=== PATIENT | male | born 1965 | race Caucasian/White ===

== ENCOUNTER 2017-05-29 17:36 | Emergency (ER) | payer MEDICARE, OTHER, SELFPAY ==
[2017-05-29 17:39] VITALS: BP 167/95; PULSE 81; RESP 16; TEMP 36.8; O2SAT 96; BMI 31.3
[2017-05-29] MEDS: Diphth,Pertuss(Acell),Tet Vac 0.5 ML Vial IM (18:32)
--- NOTE | 2017-05-29 19:18 | ED.DCSUM_ITS ---
- ER Visit Summary Date of Service: 05/29/17 Chief Complaint: Right index finger injury History of Present Illness: The patient is a 51 M who cut his right index finger with a composition roll maker and cutter less than an hour before presentation. He denies paresthesias weakness loss of function. He is uncertain of his last tetanus immunization. Denies paresthesias weakness loss of function. Physical Examination: Afebrile vitals are stable Heart regular rate and rhythm Lungs are clear 1 1/2 cm laceration over the dorsal aspect of the distal right index finger brisk capillary refill with normal sensation Test Results: Not indicated Emergency Department Course and Treatment: Tetanus immunization updated. Patient was anesthetized utilizing a digital block and the wound was cleansed with sterile saline. Laceration closed with 4 simple interrupted 50 nonabsorbable sutures. Patient instructed on local wound care. Treatment Plan: [] Disposition: Discharge Impression: Right index finger laceration This note was generated with OnHand dictation software. It may contain incorrect words, spelling, and punctuation that were not noted in review of the chart prior to signing ED Disposition - Plan for ED Patient: Chief Complaint: Laceration Referrals: Azael Ramos MD [Primary Care Provider] -
--- NOTE | 2017-05-29 19:18 | ED.DEP ---
ED Disposition - Plan for ED Patient: Chief Complaint: Laceration Instructions: ED Laceration Hand Referrals: Azael Ramos MD [Primary Care Provider] -
[2017-05-29 19:44] VITALS: RESP 18
== END 2017-05-29 19:45 | disposition home or self-care (01) ==
PROVIDERS: Emergency Provider Emergency Medicine; Family Provider Family Medicine; PCP Family Medicine
DX: S61.210A Laceration without foreign body of right index finger without damage to nail, initial encounter (principal); W29.8XXA Contact with other powered hand tools and household machinery, initial encounter; Y93.9 Activity, unspecified; Y92.9 Unspecified place or not applicable; Y99.9 Unspecified external cause status; Z23 Encounter for immunization; I12.0 Hypertensive chronic kidney disease with stage 5 chronic kidney disease or end stage renal disease; N18.6 End stage renal disease; Z99.2 Dependence on renal dialysis
CPT/HCPCS: 12001; 90715; 99283

== ENCOUNTER → 2017-07-07 08:32 | Outpatient (CLI) | payer MEDICARE, OTHER, SELFPAY ==
[2017-07-07 10:42] LABS: Anion Gap 11 (5-15); BUN 47 mg/dL (7-18); BUN/Creat Ratio 2.7 RATIO (10-20); Calcium,Total 8.3 mg/dL (8.5-10.1); Chloride 98 mmol/L (98-107); Cholesterol 122 mg/dL (200); EST Glomerular Filtration Rate 3 mL/min (>60); Est Glom Filt Rate - Afr Amer 4 mL/min (>60); Glucose 96 mg/dL (74-106); High Density Lipoprotein 49 mg/dL; Sodium Level 138 mmol/L (136-145); Triglycerides 86 mg/dL; Very Low Density Lipoprotein 17 mg/dL (5-40)
== END ==
PROVIDERS: Family Provider Family Medicine; PCP Family Medicine; Visit Provider Family Medicine
DX: I10 Essential (primary) hypertension (principal)
CPT/HCPCS: 36415; 80048; 80061

== ENCOUNTER 2017-11-03 23:29 | Emergency (ER) | payer MEDICARE, OTHER, SELFPAY ==
[2017-11-03 23:31] VITALS: BP 155/99; PULSE 71; RESP 18; TEMP 36.4; O2SAT 99; BMI 26.0
--- NOTE | 2017-11-04 | CT_ITS ---
STUDY: CT ABDOMEN AND PELVIS WITHOUT CONTRAST REASON FOR EXAM: Male, 52 years old. Left-sided back pain. RADIATION DOSAGE (If Supplied By Facility): CTDIvol = ( 6.79 ) mGy, DLP = ( 325.88 ) mGycm TECHNIQUE: Transaxial images were obtained from the dome of the diaphragm to the symphysis pubis without oral contrast, and without intravenous contrast. Sagittal and coronal images were reconstructed. Individualized dose optimization techniques were used for this CT. COMPARISON: 10/02/2013. FINDINGS: The visualized lung bases are unremarkable. The visualized portions of the heart are within normal limits. There again are low-density lesions in the anterior segment of the right lobe of the liver inferiorly unchanged since prior exam and likely representing cysts. Normal gallbladder and extrahepatic biliary system. Normal spleen. Normal pancreas. Normal bilateral adrenal glands. Both kidneys are small and atrophic. There is moderate right hydronephrosis and hydroureter. There are calcifications in the right lower quadrant probably representing surgical clips. Stones in the distal right ureter are less likely. There are multiple nonobstructing stones in the lower pole of the left kidney new since previous exam. There is a cyst in the right kidney. There is a transplant kidney in the right lower quadrant. There is no definite hydronephrosis however renal ultrasound might be of value. The stomach is markedly distended. There are nonspecific fluid-filled small bowel loops without evidence of small bowel obstruction. There is diverticulosis of the sigmoid colon but there is no evidence of acute diverticulitis. The appendix is visualized and appears normal. There is diffuse atherosclerotic calcification of the abdominal aorta, without a demonstrated aneurysm. Normal inferior vena cava. Normal retroperitoneum. There is thickening of the bladder wall. There are radiation seeds in the prostate. There is a small umbilical hernia containing fat. There are mild degenerative changes in the lower thoracic spine. CT/Abdomen/Pelvis without Cont IMPRESSION: Atrophic kidneys consistent with chronic renal medical disease with moderate right hydronephrosis and proximal right hydroureter new since previous exam. Small nonobstructing stones in the lower pole of the left kidney. Transplant kidney in the right lower quadrant better evaluated by ultrasound. Nonspecific fluid-filled small bowel loops without evidence of small bowel obstruction. Mild ileus or enteritis are possible. Thickening of the bladder wall probably due to underdistention. Otherwise cystitis cannot be excluded. Electronically Signed: Martin Barrera MD at 1:28 EDT Tel , Service support ,
[2017-11-04] MEDS: Morphine 4 MG/ML Syringe IV (00:25)
[2017-11-04] MEDS: Ondansetron 4 MG/2 ML Vial IV (00:26)
[2017-11-04 00:28] LABS: Differential Indicated MANUAL DIFF; Hematocrit 31.7 % (40-54); Hemoglobin 10.2 g/dl (13.0-16.5); Mean Corp Hgb Conc 32.2 g/gl (32-36); Mean Corpuscular Hgb 29.2 pg (27.0-32.0); Mean Corpuscular Volume 90.8 fL (80-94); Mean Platelet Vol. 8.8 fl (6.2-12.0); POSITIVE COUNT YES; POSITIVE DIFFERENTIAL YES; POSITIVE MORPHOLOGY YES; Platelet Count 264 K/mm3 (150-450); RBC Distribution Width CV 14.6 % (11.6-14.6); Red Blood Count 3.49 M/mm3 (4.6-6.2); White Blood Count 4.4 K/mm3 (4.4-11.0)
[2017-11-04 00:40] LABS: Mucous, Urine 0 SEEN /hpf (<or=2+)
[2017-11-04 00:41] LABS: Anion Gap 10 (5-15); BUN 15 mg/dL (7-18); BUN/Creat Ratio 9.4 RATIO (10-20); Calcium,Total 8.7 mg/dL (8.5-10.1); Chloride 108 mmol/L (98-107); EST Glomerular Filtration Rate 48 mL/min (>60); Est Glom Filt Rate - Afr Amer 59 mL/min (>60); Estimated Creatinine Clearance 48.74 ml/min; Glucose 211 mg/dL (74-106); Potassium 3.2 mmol/L (3.5-5.1); Sodium Level 140 mmol/L (136-145)
[2017-11-04 00:41] LABS: Color, Urine Yellow (Yellow); Glucose, Dipstick 250 mg/dl (Normal); Ketone-Dipstick Negative (Negative); Leukocyte Esterase-Dipstick 100 /ul (Negative); Nitrite-Dipstick Negative (Negative); Occult Blood-Urine 250 /ul (Negative); Protein-Dipstick 30 mg/dl (Negative); Urine Bilirubin Dipstick Negative (Negative); Urine Clarity Clear (Clear); Urine Urobilinogen Normal (Normal)
[2017-11-04 00:45] LABS: Lymphocyte 3 % (19-41); Metamyelocyte 1 % (0-1); Monocyte 6 % (0-10); Neutrophil-Band 7 % (0-5); Neutrophil-Segmented 83 % (47-70); Platelet Estimate ADEQUATE (ADEQ); Red Cell Morphology NORM C+C NORMAL (NORM C&C); Total Cells Counted 100 (MANUAL DIFF); Vacuolated Cells 1+
[2017-11-04 00:46] LABS: Absolute Lymphocyte Count 0.13 X10^3/ul (0.83-4.51); Lymphocyte # 0.13 X10^3/ul (4.0); Neutrophil # 3.96 X10^3/uL (2.7-7.7)
[2017-11-04 00:49] LABS: Red Blood Cells-Urine 0-5 SEEN /hpf (0-5); White Blood Cells 0-5 SEEN /hpf (0-5)
[2017-11-04 00:50] LABS: Bacteria 1+ /hpf (None Seen); Squamous Epithelial Cells - UA 0 SEEN /hpf (0-5)
--- NOTE | 2017-11-04 02:11 | ED.DCSUM_ITS ---
- ER Visit Summary Date of Service: 11/04/17 Chief Complaint: Back pain History of Present Illness: The patient is a 52 M who presents with left lower back pain. This is sharp and aching. He currently rates it a 6 out of 10. It is worse with movement. He also complains of some left groin pain. He has a kidney transplant patient. He complains of some dysuria but has frequently recently been straight cathing. He denies fevers or vomiting but does complain of some mild nausea which he attributes to pain. Physical Examination: Afebrile vitals are unremarkable Moist mucous members Heart regular rate and rhythm Lungs are clear Abdomen soft nontender nondistended He has mild left groin tenderness Left CVA tenderness Alert and oriented Test Results: Labs notable for 7% bands although total WBC is normal. Creatinine is 1.60. Urine shows 100 leukocyte esterase and 1+ bacteria but no nitrites and 0-[address] of the abdomen and pelvis was obtained which shows atrophic kidneys and moderate right hydroureter and hydronephrosis nonspecific fluid-filled small bowel loops and possible bladder wall thickening although this may be related to incomplete distention. Emergency Department Course and Treatment: Patient was given morphine and Zofran here for symptoms with improvement. Given his bandemia bacteriuria and bladder wall thickening I suspect this is early UTI. I did speak to the covering transplant surgeon up at [facility]. He recommended just sending a urine culture and awaiting these results and they will contact him for close follow-up. The patient is already on prophylactic Bactrim. Patient understands return for new or worsening symptoms. He was discharged home. Treatment Plan: [] Disposition: Discharge Impression: UTI Flank pain This note was generated with [employer] dictation software. It may contain incorrect words, spelling, and punctuation that were not noted in review of the chart prior to signing ED Disposition - Plan for ED Patient: Chief Complaint: Back Referrals: Azael Ramos MD [Primary Care Provider] -
--- NOTE | 2017-11-04 02:13 | ED.DEP ---
ED Disposition - Plan for ED Patient: Chief Complaint: Back Instructions: ED Flank Pain Uncertain Cause, ED UTI Cystitis Male Referrals: Azael Ramos MD [Primary Care Provider] -
[2017-11-04 02:19] VITALS: BP 138/88; PULSE 75; RESP 18; O2SAT 98
[2017-11-04 10:48] LABS: Pathologist Review Reviewed
== END 2017-11-04 02:20 | disposition home or self-care (01) ==
LOC: ED 11-04 00:01
PROVIDERS: Emergency Provider Emergency Medicine; Family Provider Family Medicine; PCP Family Medicine
DX: N39.0 Urinary tract infection, site not specified (principal); N13.30 Unspecified hydronephrosis; N26.1 Atrophy of kidney (terminal); I10 Essential (primary) hypertension; Z79.899 Other long term (current) drug therapy; Z79.52 Long term (current) use of systemic steroids; Z94.0 Kidney transplant status; Z85.46 Personal history of malignant neoplasm of prostate
CPT/HCPCS: 74176; 80048; 81001; 85025; 87077; 87086; 87088; 87186; 96374; 96375; 99283; A4216

== ENCOUNTER → 2018-07-05 08:48 | Outpatient (CLI) | payer MEDICARE, OTHER, SELFPAY ==
[2018-07-05 08:48] VITALS: BMI 31.3
[2018-07-05 11:01] LABS: ALB/GLOB Ratio 1.5 RATIO (0.9-2.4); AST(SGOT) 12 U/L (15-37); Alanine Aminotransfer ALT/SGPT 21 U/L (16-61); Albumin, Serum 3.9 g/dL (3.2-5.0); Alkaline Phosphatase 168 U/L (45-117); Anion Gap 9 (5-15); BUN 13 mg/dL (7-18); Calcium,Total 8.6 mg/dL (8.5-10.1); Chloride 106 mmol/L (98-107); Cholesterol 160 mg/dL (200); Creatinine, Serum 1.45 mg/dL (0.70-1.30); EST Glomerular Filtration Rate 54 mL/min (>60); Est Glom Filt Rate - Afr Amer 66 mL/min (>60); Globulin 2.6 g/dL (2.2-4.2); Glucose 116 mg/dL (74-106); High Density Lipoprotein 76 mg/dL; Potassium 3.7 mmol/L (3.5-5.1); Protein, Total 6.5 g/dL (6.4-8.2); Sodium Level 139 mmol/L (136-145); Triglycerides 77 mg/dL; Very Low Density Lipoprotein 15 mg/dL (5-40)
== END ==
PROVIDERS: Family Provider Family Medicine; PCP Family Medicine; Referring Provider Family Medicine; Visit Provider Family Medicine
DX: E78.5 Hyperlipidemia, unspecified (principal)
CPT/HCPCS: 36415; 80053; 80061

== ENCOUNTER → 2019-07-02 08:58 | Outpatient (CLI) | payer MEDICARE, OTHER, SELFPAY ==
[2018-07-05 08:48] VITALS: BMI 31.3
[2019-07-02 10:30] LABS: Cholesterol 145 mg/dL (200); High Density Lipoprotein 62 mg/dL; Triglycerides 95 mg/dL; Very Low Density Lipoprotein 19 mg/dL (5-40)
== END ==
PROVIDERS: PCP Family Medicine; Referring Provider Family Medicine; Visit Provider Family Medicine
DX: I10 Essential (primary) hypertension (principal)
CPT/HCPCS: 36415; 80061

== ENCOUNTER → 2019-10-18 | Outpatient (CLI) | payer MEDICARE, OTHER, SELFPAY ==
[2018-07-05 08:48] VITALS: BMI 31.3
[2019-10-18 11:50] LABS: Bacteria 0 SEEN /hpf (None Seen); Mucous, Urine 0 SEEN /hpf (<or=2+); Red Blood Cells-Urine 0 SEEN /hpf (0-5); Squamous Epithelial Cells - UA 0 SEEN /hpf (0-5); White Blood Cells 0 SEEN /hpf (0-5)
[2019-10-18 12:12] LABS: Color, Urine Yellow (Yellow); Glucose, Dipstick Normal (Normal); Ketone-Dipstick Negative (Negative); Leukocyte Esterase-Dipstick Negative /ul (Negative); Nitrite-Dipstick Negative (Negative); Occult Blood-Urine 25 /ul (Negative); Protein-Dipstick 15 mg/dl (Negative); Specific Gravity, Urine 1.015 (1.002-1.030); Urine Bilirubin Dipstick Negative (Negative); Urine Clarity Sl. Cloudy (Clear); Urine Urobilinogen Normal (Normal); Urine pH 6.5 (5.0 - 8.0)
[2019-10-18 12:51] LABS: Protein, Urine (Random) 27.6 mg/dL (<11.9); Protein:Creat Ratio 224 mg/g CRE (0-200)
== END | disposition home or self-care (01) ==
LOC: LABSPEC 11:49
PROVIDERS: PCP Family Medicine; Visit Provider Internal Medicine Nephrology
DX: Q87.81 Alport syndrome (principal)
CPT/HCPCS: 81001; 82570; 84156

== ENCOUNTER → 2019-12-11 | Outpatient (CLI) | payer MEDICARE, OTHER, SELFPAY ==
[2018-07-05 08:48] VITALS: BMI 31.3
[2019-12-10 17:33] LABS: Bacteria 0 SEEN /hpf (None Seen); Mucous, Urine 0 SEEN /hpf (<or=2+); Squamous Epithelial Cells - UA 0 SEEN /hpf (0-5); White Blood Cells 0 SEEN /hpf (0-5)
[2019-12-10 17:55] LABS: Color, Urine Yellow (Yellow); Glucose, Dipstick Normal (Normal); Ketone-Dipstick Negative (Negative); Leukocyte Esterase-Dipstick Negative /ul (Negative); Nitrite-Dipstick Negative (Negative); Occult Blood-Urine 10 /ul (Negative); Protein-Dipstick Negative (Negative); Specific Gravity, Urine 1.015 (1.002-1.030); Urine Bilirubin Dipstick Negative (Negative); Urine Clarity Clear (Clear); Urine Urobilinogen Normal (Normal)
[2019-12-10 18:04] LABS: Calcium Oxalate Crystals Ur 1+ /hpf (<or=2+); Red Blood Cells-Urine 0-5 SEEN /hpf (0-5)
== END | disposition home or self-care (01) ==
LOC: LABSPEC 11:25
PROVIDERS: PCP Family Medicine; Visit Provider Nurse Practitioner Adult Health
DX: R31.29 Other microscopic hematuria (principal)
CPT/HCPCS: 81001

== ENCOUNTER → 2020-05-28 | Outpatient (CLI) | payer MEDICARE, OTHER, SELFPAY ==
[2018-07-05 08:48] VITALS: BMI 31.3
== END | disposition home or self-care (01) ==
LOC: LABSPEC 16:20
PROVIDERS: PCP Family Medicine; Referring Provider Family Medicine; Visit Provider Family Medicine
DX: U07.1 COVID-19 (principal)
CPT/HCPCS: 87635; U0003

== ENCOUNTER → 2020-06-13 10:00 | Outpatient (CLI) | payer MEDICARE, OTHER, SELFPAY ==
[2018-07-05 08:48] VITALS: BMI 31.3
[2020-06-13 12:41] LABS: Absolute Lymphocyte Count 0.41 X10^3/uL (0.83-4.51); Absolute Neutrophil Count 12.3 X10^3/uL (2.0-7.7); Basophil# 0.02 X10^3/uL; Basophil% 0.1 % (0-1); Hematocrit 44.1 % (40-54); Hemoglobin 13.9 g/dL (13.0-16.5); Lymphocyte # 0.41 X10^3/ul (4.0); Mean Corp Hgb Conc 31.5 g/dL (32-36); Mean Corpuscular Hgb 26.9 pg (27.0-32.0); Mean Corpuscular Volume 85.3 fL (80-94); Mean Platelet Vol. 10.9 fl (6.2-12.0); Monocyte# 1.02 X10^3/uL; Monocyte% 7.4 % (0-10); NRBC Flagged by Analyzer 0 % (0-5); Neutrophil # 12.26 X10^3/uL (2.7-7.7); Neutrophil % 88.6 % (47-70); POSITIVE DIFFERENTIAL YES; Platelet Count 250 K/mm3 (150-450); RBC Distribution Width CV 13.8 % (11.6-14.6); RBC Distribution Width SD 42.2 fl (35.1-43.9); Red Blood Count 5.17 M/mm3 (4.6-6.2); White Blood Count 13.8 K/mm3 (4.4-11.0)
[2020-06-13 12:44] LABS: Differential Indicated SCAN CRITERIA MET
[2020-06-13 13:00] LABS: Differential Comment SCANNED
[2020-06-13 13:42] LABS: Anion Gap 22 (5-15); BUN 29 mg/dL (7-18); BUN/Creat Ratio 12.7 RATIO (10-20); Calcium,Total 9.1 mg/dL (8.5-10.1); Chloride 92 mmol/L (98-107); Creatinine, Serum 2.29 mg/dL (0.70-1.30); EST Glomerular Filtration Rate 32 mL/min (>60); Est Glom Filt Rate - Afr Amer 38 mL/min (>60); Glucose 619 mg/dL (74-106); Potassium 4.8 mmol/L (3.5-5.1); Sodium Level 129 mmol/L (136-145)
== END ==
PROVIDERS: PCP Family Medicine; Referring Provider Family Medicine; Visit Provider Family Medicine
DX: Z94.0 Kidney transplant status (principal)
CPT/HCPCS: 36415; 80048; 85025

== ENCOUNTER 2020-06-13 14:38 | Inpatient (IN) | payer MEDICARE, OTHER, SELFPAY ==
[2018-07-05 08:48] VITALS: BMI 31.3
[2020-06-13] VITALS (17 sets, daily range): BP systolic 83–161; BP diastolic 61–96; PULSE 73–100; RESP 14–22; TEMP 36.4–36.6; O2SAT 93–98; BMI 26.1; BMI 26.9
--- NOTE | 2020-06-13 15:07 | CT_ITS ---
STUDY: CT BRAIN WITHOUT CONTRAST REASON FOR EXAM: Male, 54 years old. Confusion. Weakness. Headache. RADIATION DOSAGE (If Supplied By Facility): CTDIvol = ( 44.99 ) mGy, DLP = ( 762.36 ) mGycm TECHNIQUE: Transaxial CT imaging of the brain was performed without administration of intravenous contrast material. Individualized dose optimization techniques were used for this CT. COMPARISON: No relevant priors. FINDINGS: Normal soft tissue structures. Normal calvarium. Normal size ventricles and extra-axial spaces for the patient''s age. Normal white matter tracts of the cerebral hemispheres. There is a small focal calcification adjacent to the left head of the caudate nucleus. Otherwise normal basal ganglia and thalami. Normal brainstem. Normal cerebellum. There is no intracranial hemorrhage. There are no findings of an acute ischemic infarction. Normal visualized paranasal sinuses. CT/Brain/Head without Contrast IMPRESSION: No evidence of acute intracranial or calvarial abnormality. If there is continuing concern for acute stroke, MRI is recommended. Electronically Signed: Jose Keller DO at 16:11 EST Tel [phone], Service support ,
--- NOTE | 2020-06-13 15:08 | EKG12_ITS ---
Test Reason : GENERAL ILLNESS Blood Pressure : / mmHG Vent. Rate : 083 BPM Atrial Rate : 083 BPM P-R Int : 158 ms QRS Dur : 098 ms QT Int : 384 ms P-R-T Axes : 037 -44 036 degrees QTc Int : 451 ms Normal sinus rhythm Left axis deviation Abnormal ECG Confirmed by MAURIZIO KNOX, DESTINY ([id number]), marketing editor DAPHNEY SANDERS ([id number]) on 06/16/2020 10:57:51 AM Referred By: Confirmed By:DESTINY STEVEN MD
--- NOTE | 2020-06-13 15:12 | ED.VISSUMM ---
- ER Visit Summary Date of Service: 06/13/20 Chief Complaint: Confusion History of Present Illness: The patient is a 54 M presenting for confusion. Patient states this started yesterday afternoon. He states he was had a positive Covid test on 05/28/2020. He states he was starting to feel improved. Yesterday he started to have confusion and trouble finding words. He has a mild headache. He has had nausea, vomiting, urinary frequency. He saw his primary care physician today who ordered outpatient blood work. This showed his blood sugar was over 600. Patient has no history of diabetes. He has a history of kidney transplant in 2018. He denies fever. Denies vision changes. Denies numbness or weakness. Denies chest pain or shortness of breath. Physical Examination: Vitals are stable. Patient is afebrile. Alert no acute distress. HEENT exam dry mucous membranes Neck is supple. Lungs are clear and equal bilaterally. Heart is regular tachycardic Abdomen is soft nontender nondistended. Extremities are unremarkable. Skin is warm and dry. No focal neurologic deficit. NIH 0 Remainder of exam is unremarkable. Emergency Department Course and Treatment: EKG is sinus rhythm rate of 83 with no acute ischemic changes. CT head shows no acute process. Chest x-ray shows question minimal atelectatic changes in left hilar region. There is no acute cardiopulmonary change. CBC shows white count 12.5. Chemistries show sodium 125, CO2 16, anion gap 18, glucose 679, BUN 29, creatinine 2.15. Ketones are moderate. Lactic acid is normal. Patient was given IV fluids and started on insulin drip. Discussed with Dr. Payne. Covid PCR was sent. Patient will be admitted to the ICU. Disposition: Admission Impression: DKA, confusion, recent Covid This note was generated with [employer] Ice dictation software. It may contain incorrect words, spelling, and punctuation that were not noted in review of the chart prior to signing ED Disposition - Plan for ED Patient: Referrals: Azael Ramos MD [Primary Care Provider] -
[2020-06-13 15:41] LABS: Bedside Glucose > 500 mg/dL (70-110)
[2020-06-13 15:50] LABS: Blood Gas Specimen Type VEN; O2 Delivery Device Room Air; SITE R Brach; VBG BASE EXCESS -12 mmol/L (-1.0-3.5); VBG Bicarbonate 14 mmol/L (22-26); VBG PO2 40 mmHg (25-40); VBG SO2 72 % (50-70); VBG TCO2 15 mmol/L (23-33); VBG pCO2 27.6 mmHg (41-51); VBG pH 7.32 (7.32-7.42)
--- NOTE | 2020-06-13 16:00 | RAD_ITS ---
STUDY: X-RAY CHEST REASON FOR EXAM: Male, 54 years old. Hyperglycemia. Confusion. Weakness. Headache. TECHNIQUE: Single AP portable view of the chest. COMPARISON: 04/19/2013. FINDINGS: The lungs are well expanded. There is slight elevation of the left hemidiaphragm. Minimal linear scarring versus atelectatic changes in the region left hilum. There is no focal mass or infiltrate. There is no demonstrated pleural abnormality. Normal size heart. Normal mediastinum and leobardo. Normal visualized pulmonary arteries. Normal visualized aortic arch and descending thoracic aorta. The thoracic spine is obscured by the mediastinum. Normal visualized ribs, clavicles, and shoulders. There is no demonstrated abnormality of the visualized soft tissue structures of the upper abdomen. RAD/Chest 1 View (Portable) IMPRESSION: Question minimal atelectatic changes in left hilar region. There is no acute cardiopulmonary change. Electronically Signed: Jose Keller DO at 16:26 EST Tel [phone], Service support ,
[2020-06-13 16:02] LABS: Absolute Lymphocyte Count 0.33 X10^3/uL (0.83-4.51); Absolute Neutrophil Count 11.2 X10^3/uL (2.0-7.7); Basophil# 0.02 X10^3/uL; Basophil% 0.2 % (0-1); Hematocrit 41.5 % (40-54); Hemoglobin 13.6 g/dL (13.0-16.5); Lymphocyte # 0.33 X10^3/ul (4.0); Lymphocyte % 2.7 % (19-41); Mean Corp Hgb Conc 32.8 g/dL (32-36); Mean Corpuscular Hgb 27.4 pg (27.0-32.0); Mean Corpuscular Volume 83.7 fL (80-94); Mean Platelet Vol. 10.9 fl (6.2-12.0); Monocyte# 0.84 X10^3/uL; Monocyte% 6.7 % (0-10); NRBC Flagged by Analyzer 0 % (0-5); Neutrophil # 11.15 X10^3/uL (2.7-7.7); Neutrophil % 89.5 % (47-70); POSITIVE DIFFERENTIAL YES; Platelet Count 216 K/mm3 (150-450); RBC Distribution Width CV 13.8 % (11.6-14.6); RBC Distribution Width SD 41.9 fl (35.1-43.9); Red Blood Count 4.96 M/mm3 (4.6-6.2); White Blood Count 12.5 K/mm3 (4.4-11.0)
[2020-06-13 16:04] LABS: Differential Indicated SCAN CRITERIA MET
[2020-06-13 16:06] LABS: ALB/GLOB Ratio 1.2 RATIO (0.9-2.4); AST(SGOT) 10 U/L (15-37); Alanine Aminotransfer ALT/SGPT 17 U/L (16-61); Albumin, Serum 3.6 g/dL (3.2-5.0); Alkaline Phosphatase 110 U/L (45-117); Anion Gap 18 (5-15); BUN 29 mg/dL (7-18); BUN/Creat Ratio 13.5 RATIO (10-20); Calcium,Total 8.9 mg/dL (8.5-10.1); Chloride 91 mmol/L (98-107); Creatinine, Serum 2.15 mg/dL (0.70-1.30); EST Glomerular Filtration Rate 34 mL/min (>60); Est Glom Filt Rate - Afr Amer 41 mL/min (>60); Estimated Creatinine Clearance 35.44 ml/min; Glucose 679 mg/dL (74-106); Potassium 5.1 mmol/L (3.5-5.1); Protein, Total 6.6 g/dL (6.4-8.2); Sodium Level 125 mmol/L (136-145)
[2020-06-13 16:17] LABS: Lactic Acid 1.4 mmol/L (0.4-1.9)
[2020-06-13] MEDS: 0.9% Normal Saline 1,000 ML 999 ML IV (16:38)
--- NOTE | 2020-06-13 16:45 | PCM.HP.STD ---
Problem List (1) Hyperlipidemia Status: Chronic Qualifiers: Hyperlipidemia type: unspecified Qualified Code(s): E78.5 - Hyperlipidemia, unspecified (2) Hypertension Status: Chronic Qualifiers: Hypertension type: essential hypertension Qualified Code(s): I10 - Essential (primary) hypertension (3) Alport syndrome Status: Chronic (4) Secondary DM with DKA Status: Acute History of Present Illness Date of Admission: 06/13/20 Chief Complaint: Confusion, fall - 2 days The patient is a 54 year old M with past medical history of Alport syndrome, status post kidney transplant in 2018, history of hypertension who comes in with confusion and a fall that happened a day before admission. Patient was recently diagnosed with COVID-19 infection. He got tested on 05/28/20. Today was supposed to be his last day in quarantine. He was confused yesterday and had trouble finding with trying to open the door knob of the house he is sleeping for long time. He had a telehealth visit and also saw his primary care doctor. Outpatient work was ordered. He was called to come to the emergency room because his blood sugar was over 600. Patient admitted to some nausea, increased frequency, polyuria, polydipsia. Initial vitals in the ED showed temperature of 97.5F, heart rate 100, blood pressure 83/62, respiratory rate 16, SPO2 was 98% on room air. BC count was 12.5, hemoglobin 13.6, platelet count 216, odium 125, potassium 5.1, chloride 91, bicarbonate 16, BUN 29, creatinine 2.15, glucose 679, LFTs are unremarkable. UA is also unremarkable. Admitting blood sugar in the ED was more than 500. Patient's admitting chest x-ray showed questionable minimal atelectatic changes in the left hilar region, no acute cardiopulmonary change. Past Medical History Past Medical History (Chronic Problems): Chronic Problems Hyperlipidemia (Chronic) Hypertension (Chronic) ESRD (end stage renal disease) (Chronic) On peritoneal dialysis Alport syndrome (Chronic) Allergies acetaminophen [From Percocet] Adverse Reaction (Verified 06/13/20 14:39) Other amoxicillin Adverse Reaction (Verified 06/13/20 14:39) Other clonazepam [From Klonopin] Adverse Reaction (Verified 06/13/20 14:39) Other milk Adverse Reaction (Verified 06/13/20 14:39) Diarrhea oxycodone [From Percocet] Adverse Reaction (Verified 06/13/20 14:39) Other tomato [Tomato] Adverse Reaction (Verified 06/13/20 14:39) Diarrhea Home Medications: Ambulatory Orders Medication Instructions Recorded Amlodipine [Norvasc] 10 mg PO DAILY 11/04/17 Melatonin 5 mg PO QHS 11/04/17 Mycophenolate Mofetil [Cellcept] 750 mg PO DAILY 11/04/17 Omeprazole [Prilosec] 20 mg PO DAILY 11/04/17 Sulfamethoxazole/Trimethoprim 1 tab PO DAILY 11/04/17 [Bactrim 400-80 mg Tablet] Tacrolimus Anhydrous [Prograf] 4 mg PO DAILY 11/04/17 Tacrolimus Anhydrous [Prograf] 5 mg PO QHS 11/04/17 Tamsulosin HCl [Flomax] 0.4 mg PO BID 11/04/17 Venlafaxine XR [Effexor Xr] 75 mg PO DAILY 11/04/17 Carvedilol [Coreg] 12.5 mg PO BID 06/13/20 Levofloxacin [Levaquin] 500 mg PO DAILY 06/13/20 Mycophenolate Mofetil [Cellcept] 500 mg PO DAILY 06/13/20 Prednisone 5 mg PO DAILY 06/13/20 Simvastatin [Zocor] 20 mg PO QHS 06/13/20 Surgical History: - - Tonsillectomy, kidney biopsy, status post abdominal surgery for abscess Psychiatric History: No pertinent psych hx Lives: Spouse/ Significant Other Smoking Status: Never smoker Tobacco Use: Non-smoker Alcohol: None Drugs: None - *Family History Maternal History Items: Hypertension, Renal Disease Paternal History Items: Cancer - Colon cancer Review of Systems Constitutional: Reports: Anorexia, Weakness, Fatigue. Denies: Chills, Fever, Night Sweats, Weight Change Eyes: Denies: Blurred vision, Cataracts, Conjunctivae Inflammation, Pain, Redness HEENT: Denies: Difficulty Hearing, Difficulty Swallowing, Head Aches, Hearing Changes, Sinus Congestion, Sinus Drainage, Sore Throat Cardiovascular: Denies: Chest Pain, Claudication, Orthopnea, Palpitations, Paroxysmal Noc. Dyspnea Respiratory: Denies: Cough, Shortness of breath at rest, Shortness of breath upon exertion, Sputum production Gastrointestinal: Denies: Abdominal Pain, Hematemesis, Nausea, Vomiting Genitourinary: Reports: Frequency. Denies: Dysuria, Incontinence Musculoskeletal: Denies: Joint Pain, Joint stiffness, Joint swelling, Joint Tenderness Skin: Denies: Rash, Wounds Neurological: Denies: Numbness, Tingling, Focal weakness Psychiatric: Denies: Anxiety, Depression, Homicidal Ideations, Suicidal Ideations Hematologic/ Lymphatic: Denies: Easy Bruising, Easy Bleeding VTE Information - Inpt Only VTE Present on Admission: No VTE Pharm Prophylaxis ordered?: Yes Patient Problems: Active and Suspected Problems Secondary DM with DKA (Acute) - Physical Exam Vitals/I&O's: Vital Signs Temp Pulse Resp BP Pulse Ox 97.5 F L 85 17 110/79 97 06/13/20 14:39 06/13/20 15:21 06/13/20 15:21 06/13/20 15:21 06/13/20 15:21 Oxygen Delivery Method Room Air Weight: 73.482 kg Body Mass Index (BMI) 26.1 Finger Stick Blood Glucose 600 General: Alert, Oriented x3, Cooperative, No apparent distress HEENT: Atraumatic, PERRLA, EOMI, Normocephalic Oral: Moist Mucosa Neck: Supple Lungs: Clear to auscultation, Normal air movement Cardiovascular: Regular rate, Regular Rhythm, Normal S1, Normal S2, No murmurs Abdomen: Bowel Sounds Present, Soft, Non Tender, Non-Distended, No Hepato-splenomegaly Extremities: No edema Skin: No rashes Musculoskeletal: No Tenderness to Palpation of Joints or Extremities Lymphatic: No Cervical, Supraclavicular, or Inguinal Adenopathy Neurological: Cranial nerves II-XII grossly intact, Neuro grossly intact Psych/Mental Status: Normal Affect, Appropriate Laboratory Results 06/13/20 15:28: WBC 12.5 H, RBC 4.96, Hgb 13.6, Hct 41.5, MCV 83.7, MCH 27.4, MCHC 32.8, RDW Std Deviation 41.9, RDW Coeff of Willian 13.8, Plt Count 216, MPV 10.9, Immature Gran % (Auto) 0.900, Neut % (Auto) 89.5 H, Lymph % (Auto) 2.7 L, Posey % (Auto) 6.7, Eos % (Auto) 0.0, Baso % (Auto) 0.2, Absolute Neuts (auto) 11.2 H, Absolute Lymphs (auto) 0.33 L, Nucleated RBC % 0, Differential Comment 06/13/20 15:28: Sodium 125 L, Potassium 5.1, Chloride 91 L, Carbon Dioxide 16.0 L, Anion Gap 18 H, BUN 29 H, Creatinine 2.15 H, Estim Creat Clear Calc 35.44, Est GFR (MDRD) Af Amer 41 L, Est GFR (MDRD) Non-Af 34 L, BUN/Creatinine Ratio 13.5, Glucose 679 H*, Calcium 8.9, Total Bilirubin 0.70, AST 10 L, ALT 17, Alkaline Phosphatase 110, Troponin I 0.028, Total Protein 6.6, Albumin 3.6, Globulin 3.0, Albumin/Globulin Ratio 1.2 06/13/20 15:28: Lactic Acid 1.4 06/13/20 15:28: Acetone Level MODERATE H 06/13/20 15:33: POC Glucose > 500 H* 06/13/20 15:46: Specimen Type ALTON, Sample Site R Brach, VBG pH 7.32, VBG pO2 40, VBG HCO3 14 L, VBG Total CO2 15 L, VBG O2 Sat (Calc) 72 H, VBG Base Excess -12 L, POC Mix VBG pCO2 Pt Tmp 27.6 L, O2 Delivery Device Room Air Current Medications Dextrose (Dextrose 50%-Water 25 Gm/50 Ml Disp.Syrin) 0 gm IV X1 PRN; Protocol PRN Reason: Hypoglycemia Protocol Insulin Human Lispro 100 unit/ (Sodium Chloride) 100 mls @ 7.348 mls/hr CONT INF .[id number] [facility]; Protocol Stop: 06/14/20 06:06 Sodium Chloride () 1,000 mls @ 999 mls/hr IV .Q1H1M ONE Stop: 06/13/20 17:27 Last Admin: 06/13/20 16:38 Dose: 999 mls/hr Documented by: Assessment/Plan All Active Problems Secondary DM with DKA (Acute) Hypercalcemia (Acute) 1. Acute DKA in a patient with no history of diabetes Patient is on chronic steroids and immunosuppressants -likely side effect of tacrolimus vs Cellcept Admitted with a blood sugar more than 500, anion gap was 22, bicarbonate was 15 Started on insulin protocol. Check HgbA1 Continue in ICU on insulin/DKA protocol 2. Acute metabolic encephalopathy likely secondary to #1 CT scan of the brain was negative for acute abnormality. Patient is alert oriented x3, continue to monitor 3. Hyponatremia secondary to pseudohyponatremia/dehydration from #1 We will trend BMP every 4 per protocol 4. Leukocytosis, likely reactive, WBC count is 13.5 No signs of infection, repeat WBC count in a.m. 5. Acute COVID-19 infection, without hypoxia Got tested on 05/28/20. Per patient, he was supposed to be in quarantine till today 06/13/20 Continue with isolation 6. Abnormal chest x-ray, reported as atelectatic changes in the left hilar region We will repeat chest x-ray in a.m. to rule out smoldering pneumonia 7. JOYCE on CKD stage III, history of kidney transplant in 2018, follows with Dr. Knight Baseline Cr 1.4. Will trend labs, consult nephrology -discussed with Dr. Knight, hold evening dose of tacrolimus for now Continue on rest of transplant medications as well as prednisone 8. Hypertension, controlled, continue on amlodipine and carvedilol 9. DVT PPx- Heparin SC 10. Code status - DNR-CCA I discussed and explained in details the various types of CODE STATUS-full code, DNR CCA, DNR CC. Patient chose DNR-CCA Time spent discussing CODE STATUS 18 minutes Inpatient E&M: 79115 Init Hosp L3 Procedures: 58435 Advncd Care Plan 30 Min
[2020-06-13 16:48] LABS: Bacteria 0 SEEN /hpf (None Seen); Mucous, Urine 0 SEEN /hpf (<or=2+); Red Blood Cells-Urine 0 SEEN /hpf (0-5); Squamous Epithelial Cells - UA 0 SEEN /hpf (0-5); White Blood Cells 0 SEEN /hpf (0-5)
[2020-06-13 17:01] LABS: Color, Urine Straw (Yellow); Glucose, Dipstick 1000 mg/dl (Normal); Leukocyte Esterase-Dipstick Negative /ul (Negative); Nitrite-Dipstick Negative (Negative); Occult Blood-Urine 50 /ul (Negative); Protein-Dipstick 15 mg/dl (Negative); Specific Gravity, Urine 1.015 (1.002-1.030); Urine Bilirubin Dipstick Negative (Negative); Urine Clarity Clear (Clear); Urine Urobilinogen Normal (Normal)
[2020-06-13 17:05] LABS: Bedside Glucose > 500 mg/dL (70-110)
--- NOTE | 2020-06-13 17:05 | ED.RN ---
insulin drip verified by Padmaja Morton RN.
[2020-06-13 17:18] LABS: Ketone-Dipstick 150 mg/dl (Negative)
[2020-06-13 19:26] LABS: Bedside Glucose 478 mg/dL (70-110)
[2020-06-13] MEDS: 0.9% Normal Saline 1,000 ML 500 ML IV (20:02)
[2020-06-13] MEDS: 0.9% Normal Saline 1,000 ML 250 ML IV (21:00)
[2020-06-13] MEDS: Atorvastatin Calcium 10 MG Tablet PO (21:21)
[2020-06-13] MEDS: Tamsulosin HCl 0.4 MG Capsule PO (21:22)
[2020-06-13] MEDS: Mycophenolate Mofetil 250 MG Capsule 500 MG PO (21:22)
[2020-06-13 21:30] LABS: Bedside Glucose 413 mg/dL (70-110)
[2020-06-13 21:30] LABS: Bedside Glucose 423 mg/dL (70-110)
[2020-06-13] MEDS: Acetaminophen 325 MG Tablet 650 MG PO (22:12)
[2020-06-13 22:34] LABS: Anion Gap 12 (5-15); BUN 26 mg/dL (7-18); BUN/Creat Ratio 14.4 RATIO (10-20); Calcium,Total 8.7 mg/dL (8.5-10.1); Chloride 104 mmol/L (98-107); Creatinine, Serum 1.81 mg/dL (0.70-1.30); EST Glomerular Filtration Rate 42 mL/min (>60); Est Glom Filt Rate - Afr Amer 50 mL/min (>60); Glucose 375 mg/dL (74-106); Potassium 4.1 mmol/L (3.5-5.1); Sodium Level 133 mmol/L (136-145)
--- NOTE | 2020-06-13 23:25 | CPS ---
Patient was not feeling enough to do x10
[2020-06-14] VITALS (18 sets, daily range): BP systolic 92–156; BP diastolic 63–97; PULSE 66–94; RESP 14–25; TEMP 36.5–36.6; O2SAT 94–97; BMI 27.1
[2020-06-14] MEDS: Dext 5%-0.45% NS 1,000 ML 150 ML IV (00:53)
[2020-06-14 01:01] LABS: Bedside Glucose 326 mg/dL (70-110)
[2020-06-14 01:01] LABS: Bedside Glucose 358 mg/dL (70-110)
[2020-06-14 01:01] LABS: Bedside Glucose 281 mg/dL (70-110)
[2020-06-14 01:16] LABS: Anion Gap 9 (5-15); BUN 22 mg/dL (7-18); BUN/Creat Ratio 13.8 RATIO (10-20); Calcium,Total 8.2 mg/dL (8.5-10.1); Chloride 108 mmol/L (98-107); Creatinine, Serum 1.59 mg/dL (0.70-1.30); EST Glomerular Filtration Rate 48 mL/min (>60); Est Glom Filt Rate - Afr Amer 59 mL/min (>60); Estimated Creatinine Clearance 47.93 ml/min; Glucose 256 mg/dL (74-106); Sodium Level 137 mmol/L (136-145)
[2020-06-14] MEDS: Metoclopramide 10 MG/2 ML Vial 5 MG IV (01:50)
--- NOTE | 2020-06-14 05:11 | RAD_ITS ---
HISTORY: abnormal prior chest xray EXAM: XR Chest 1 View: COMPARISON: June 13, 2020 FINDINGS: # of images incl. paperwork: 1 Focal area of parenchymal disease is present superimposed over the anterolateral aspect of the left second rib and is better demonstrated on today's study. Some additional airspace disease is present more inferiorly between the anterior left third and fourth ribs. The right lung is relatively clear Heart is not enlarged. No acute osseous pathology perceived. Pulmonary vascularity is distinct. No effusions. RAD/Chest 1 View (Portable) IMPRESSION: Left lung airspace disease that is more prominent on today's study than on the previous study and could represent pneumonia. at 0631 Reported and signed by: Erwin Mcclelland MD Electronically Signed: Erwin Mcclelland MD at 6:30 EST Tel , Service support ,
[2020-06-14 05:35] LABS: Absolute Lymphocyte Count 0.51 X10^3/uL (0.83-4.51); Absolute Neutrophil Count 9.5 X10^3/uL (2.0-7.7); Basophil# 0.02 X10^3/uL; Basophil% 0.2 % (0-1); Eosinophil# 0.01 X10^3/uL; Eosinophils% 0.1 % (0-5); Hematocrit 39.5 % (40-54); Lymphocyte # 0.51 X10^3/ul (4.0); Lymphocyte % 4.6 % (19-41); Mean Corp Hgb Conc 32.9 g/dL (32-36); Mean Corpuscular Hgb 27.7 pg (27.0-32.0); Mean Corpuscular Volume 84.2 fL (80-94); Mean Platelet Vol. 10.4 fl (6.2-12.0); Monocyte# 0.83 X10^3/uL; Monocyte% 7.5 % (0-10); NRBC Flagged by Analyzer 0 % (0-5); Neutrophil # 9.52 X10^3/uL (2.7-7.7); Neutrophil % 86.3 % (47-70); POSITIVE DIFFERENTIAL YES; Platelet Count 192 K/mm3 (150-450); RBC Distribution Width CV 13.9 % (11.6-14.6); RBC Distribution Width SD 42.3 fl (35.1-43.9); Red Blood Count 4.69 M/mm3 (4.6-6.2)
[2020-06-14 05:37] LABS: Differential Indicated SCAN CRITERIA MET
[2020-06-14 05:52] LABS: ALB/GLOB Ratio 1.1 RATIO (0.9-2.4); AST(SGOT) 12 U/L (15-37); Alanine Aminotransfer ALT/SGPT 16 U/L (16-61); Alkaline Phosphatase 87 U/L (45-117); Anion Gap 11 (5-15); BUN 19 mg/dL (7-18); BUN/Creat Ratio 12.7 RATIO (10-20); Calcium,Total 8.4 mg/dL (8.5-10.1); Chloride 106 mmol/L (98-107); EST Glomerular Filtration Rate 52 mL/min (>60); Est Glom Filt Rate - Afr Amer 63 mL/min (>60); Globulin 2.7 g/dL (2.2-4.2); Glucose 301 mg/dL (74-106); Potassium 4.4 mmol/L (3.5-5.1); Protein, Total 5.7 g/dL (6.4-8.2); Sodium Level 135 mmol/L (136-145)
[2020-06-14 06:04] LABS: Differential Comment SCANNED
[2020-06-14 08:31] LABS: Bedside Glucose 231 mg/dL (70-110)
[2020-06-14] MEDS: Carvedilol 12.5 MG Tablet PO ×2 (08:38→21:12)
[2020-06-14] MEDS: Tamsulosin HCl 0.4 MG Capsule PO ×2 (08:40→21:12)
[2020-06-14] MEDS: Smz/Tmp Ds Tablet 0.5 TABLET PO (08:41)
--- NOTE | 2020-06-14 08:41 | CON.PCM_ITS ---
Consultation - Renal 06/14/20 PCP/ Referring MD: Requesting physician: [] Primary care physician: Dr. 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 He was seen by his PCP via telehealth prior to admit and had outpt labs done. He was told to come in to ER for elevated sugar of 600+. He had nausea, polyuria, polydipsia. He does not have a history of diabetes. Creatinine was elevated at 2.29 sodium 125, potassium 5.1 bicarbonate 16. He was started on insulin drip with iv hydration. Sodium improved to 135 with creatinine back to baseline of 1.4 today. BS improving. He was diagnosed with COVID on 05/28/20. He had poor appetite, increased fatigue, some shortness of breath since then. positive for COVID as well. Currently denies CP, SOB, cough, fever, chills. Chest x-ray showed questionable minimal atelectatic changes in the left hilar region, no acute cardiopulmonary change. - Allergies Allergies: Allergies acetaminophen [From Percocet] Adverse Reaction (Verified 06/13/20 14:39) Other amoxicillin Adverse Reaction (Verified 06/13/20 14:39) Other clonazepam [From Klonopin] Adverse Reaction (Verified 06/13/20 14:39) Other milk Adverse Reaction (Verified 06/13/20 14:39) Diarrhea oxycodone [From Percocet] Adverse Reaction (Verified 06/13/20 14:39) Other tomato [Tomato] Adverse Reaction (Verified 06/13/20 14:39) Diarrhea - Current Medications Current Medications: Current Medications Acetaminophen (Acetaminophen 325 Mg Tablet) 650 mg PO Q6H PRN PRN PRN Reason: PAIN 1-10 OR TEMPERATURE > 100.4F Last Admin: 06/13/20 22:12 Dose: 650 mg Documented by: Amlodipine Besylate (Amlodipine 10 Mg Tablet) 10 mg PO DAILY [facility] Atorvastatin Calcium (Atorvastatin Calcium 10 Mg Tablet) 10 mg PO QHS [facility] Last Admin: 06/13/20 21:21 Dose: 10 mg Documented by: Carvedilol (Carvedilol 12.5 Mg Tablet) 12.5 mg PO BID [facility] Dextrose (Dextrose 50%-Water 25 Gm/50 Ml Disp.Syrin) 0 gm IV X1 PRN; Protocol PRN Reason: Hypoglycemia Glucagon (Glucagon 1 Mg/Ml Syringe) 1 mg IM .X1 PRN PRN Reason: Hypoglycemia Heparin Sodium (Porcine) (Heparin Injection (Vial) 5,000 Unit/Ml Vial) 5,000 unit SC Q8 [facility] Last Admin: 06/14/20 06:17 Dose: Not Given Documented by: Insulin Human Lispro 100 unit/ (Sodium Chloride) 100 mls @ 7.575 mls/hr CONT INF .[id number] [facility]; Protocol Last Infusion: 06/14/20 01:00 Dose: 0.9 mls/hr Documented by: Insulin Glargine (Insulin Glargine 100 Units/Ml Pen) 15 units SC QHS [facility] Last Admin: 06/14/20 01:50 Dose: 18 u Documented by: Insulin Human Lispro (Insulin Lispro 100 Unit/Ml Insuln.Pen) 5 unit SC BREAKFAST [facility] Insulin Human Lispro (Insulin Lispro 100 Unit/Ml Insuln.Pen) 5 unit SC DINNER [facility] Insulin Human Lispro (Insulin Lispro 100 Unit/Ml Insuln.Pen) 5 unit SC LUNCH [facility] Insulin Human Lispro (Insulin Lispro 100 Unit/Ml Insuln.Pen) 0 unit SC 4X/DAYCM [facility]; Protocol Mycophenolate Mofetil (Mycophenolate Mofetil 250 Mg Capsule) 750 mg PO DAILY [facility] Mycophenolate Mofetil (Mycophenolate Mofetil 250 Mg Capsule) 500 mg PO QPM [facility] Last Admin: 06/13/20 21:22 Dose: 500 mg Documented by: Pantoprazole Sodium (Pantoprazole Sodium 20 Mg Tablet) 20 mg PO DAILY [facility] Prednisone (Prednisone 5 Mg Tablet) 5 mg PO DAILY@0800 [facility] Sodium Chloride (0.9% Saline Lock 10 Ml Syringe) 10 - 40 ml IV UD PRN PRN Reason: SALINE FLUSH Tacrolimus (Tacrolimus Anhydrous 1 Mg Capsule) 4 mg PO DAILY [facility] Tamsulosin HCl (Tamsulosin Hcl 0.4 Mg Capsule) 0.4 mg PO BID [facility] Last Admin: 06/13/20 21:22 Dose: 0.4 mg Documented by: Trimethoprim/Sulfamethoxazole (Smz/Tmp Ds Tablet) 0.5 tablet PO DAILY@0800 [facility] Venlafaxine HCl (Venlafaxine Xr 75 Mg Capsule) 75 mg PO DAILY [facility] - Past Medical History Past Medical History (Chronic Problems): Chronic Problems Status post kidney transplant (Chronic) Hyperlipidemia (Chronic) Hypertension (Chronic) ESRD (end stage renal disease) (Chronic) Alport syndrome (Chronic) - Past Surgical History Surgical History: - - Tonsillectomy, kidney biopsy, status post abdominal surgery for abscess - Social History Marital Status: Smoking Status: Former smoker Alcohol: None Drugs: None - Family History Maternal History Items: Hypertension, Renal Disease Paternal History Items: Cancer - Colon cancer Review of Systems Constitutional: Reports: Anorexia, Malaise, Weakness, Fatigue. Denies: Chills, Fever HEENT: Reports: Head Aches. Denies: Visual Changes Cardiovascular: Denies: Chest Pain Respiratory: Reports: Shortness of Breath - mild. Denies: Cough Gastrointestinal: Reports: Nausea. Denies: Constipation, Diarrhea, Vomiting Genitourinary: Reports: Frequency Musculoskeletal: Reports: - - myalgia, mild, weakness Skin: Denies: Rash Neurological: Denies: Focal weakness, Tremor, Seizures Hematologic/ Lymphatic: Denies: Anemia Patient Problems: Active and Suspected Problems Secondary DM with DKA (Acute) Objective: telemedicine visit - Physical Exam Vitals/I&O's: Vital Signs Temp Pulse Resp BP Pulse Ox 97.8 F 88 17 140/97 H 97 06/14/20 08:33 06/14/20 08:33 06/14/20 08:33 06/14/20 08:33 06/14/20 08:33 Oxygen Delivery Method Room Air Weight: 76.113 kg Body Mass Index (BMI) 26.9 Finger Stick Blood Glucose 231 Intake and Output for Last 24 Hours 06/12/20 06/13/20 06/14/20 23:59 23:59 23:59 Intake Total 2356.79 / 2358.49 1596.73 / 1596.73 Output Total 1550 / 1550 Balance 2356.79 / 1858.49 46.73 / 46.73 General: Alert, Oriented x3, Cooperative, No apparent distress Oral: Dry Mucosa Lungs: - - breathing comfortably, no conversational dyspnea Abdomen: Non Tender Extremities: No edema Psych/Mental Status: Normal Affect, Appropriate, Alert and oriented to time, place, person, mood and affect Laboratory Results 06/13/20 15:28: WBC 12.5 H, RBC 4.96, Hgb 13.6, Hct 41.5, MCV 83.7, MCH 27.4, MCHC 32.8, RDW Std Deviation 41.9, RDW Coeff of Willian 13.8, Plt Count 216, MPV 10.9, Immature Gran % (Auto) 0.900, Neut % (Auto) 89.5 H, Lymph % (Auto) 2.7 L, Jay % (Auto) 6.7, Eos % (Auto) 0.0, Baso % (Auto) 0.2, Absolute Neuts (auto) 11.2 H, Absolute Lymphs (auto) 0.33 L, Nucleated RBC % 0, Differential Comment 06/13/20 15:28: Sodium 125 L, Potassium 5.1, Chloride 91 L, Carbon Dioxide 16.0 L, Anion Gap 18 H, BUN 29 H, Creatinine 2.15 H, Estim Creat Clear Calc 35.44, Est GFR (MDRD) Af Amer 41 L, Est GFR (MDRD) Non-Af 34 L, BUN/Creatinine Ratio 13.5, Glucose 679 H*, Calcium 8.9, Total Bilirubin 0.70, AST 10 L, ALT 17, Alkaline Phosphatase 110, Troponin I 0.028, Total Protein 6.6, Albumin 3.6, Globulin 3.0, Albumin/Globulin Ratio 1.2 06/13/20 15:28: Lactic Acid 1.4 06/13/20 15:28: Acetone Level MODERATE H 06/13/20 15:28: Hemoglobin A1c 11.0 H 06/13/20 15:33: POC Glucose > 500 H* 06/13/20 15:46: Specimen Type ALTON, Sample Site R Brach, VBG pH 7.32, VBG pO2 40, VBG HCO3 14 L, VBG Total CO2 15 L, VBG O2 Sat (Calc) 72 H, VBG Base Excess -12 L, POC Mix VBG pCO2 Pt Tmp 27.6 L, O2 Delivery Device Room Air 06/13/20 16:40: Urine Color Straw, Urine Clarity Clear, Urine pH 5.0, Ur Specific [place] 1.015, Urine Protein 15 H, Urine Glucose (UA) 1000 H, Urine Ketones 150 H, Urine Occult Blood 50 H, Urine Nitrite Negative, Urine Bilirubin Negative, Urine Urobilinogen Normal, Ur Leukocyte Esterase Negative, Urine RBC 0 SEEN, Urine WBC 0 SEEN, Ur Squamous Epith Cells 0 SEEN, Urine Bacteria 0 SEEN, Urine Mucus 0 SEEN 06/13/20 16:54: POC Glucose > 500 H* 06/13/20 17:00: COVID-19 (DIANE) Cancelled 06/13/20 18:10: POC Glucose 478 H* 06/13/20 18:59: POC Glucose 423 H 06/13/20 20:00: POC Glucose 413 H 06/13/20 21:15: Sodium 133 L, Potassium 4.1, Chloride 104, Carbon Dioxide 17.0 L , Anion Gap 12, BUN 26 H, Creatinine 1.81 H, Estim Creat Clear Calc 42.10, Est GFR (MDRD) Af Amer 50 L, Est GFR (MDRD) Non-Af 42 L, BUN/Creatinine Ratio 14.4, Glucose 375 H, Calcium 8.7 06/13/20 21:17: POC Glucose 358 H 06/13/20 22:15: POC Glucose 326 H 06/13/20 23:00: POC Glucose 281 H 06/14/20 00:50: POC Glucose 231 H 06/14/20 00:55: Sodium 137, Potassium 4.0, Chloride 108 H, Carbon Dioxide 20.0 L , Anion Gap 9, BUN 22 H, Creatinine 1.59 H, Estim Creat Clear Calc 47.93, Est GFR (MDRD) Af Amer 59 L, Est GFR (MDRD) Non-Af 48 L, BUN/Creatinine Ratio 13.8, Glucose 256 H, Calcium 8.2 L 06/14/20 05:15: WBC 11.0, RBC 4.69, Hgb 13.0, Hct 39.5 L, MCV 84.2, MCH 27.7, MCHC 32.9, RDW Std Deviation 42.3, RDW Coeff of Willian 13.9, Plt Count 192, MPV 10.4, Immature Gran % (Auto) 1.300 H, Neut % (Auto) 86.3 H, Lymph % (Auto) 4.6 L , Jay % (Auto) 7.5, Eos % (Auto) 0.1, Baso % (Auto) 0.2, Absolute Neuts (auto) 9.5 H, Absolute Lymphs (auto) 0.51 L, Nucleated RBC % 0, Differential Comment SCANNED 06/14/20 05:15: Sodium 135 L, Potassium 4.4, Chloride 106, Carbon Dioxide 18.0 L , Anion Gap 11, BUN 19 H, Creatinine 1.50 H, Estim Creat Clear Calc 50.80, Est GFR (MDRD) Af Amer 63, Est GFR (MDRD) Non-Af 52 L, BUN/Creatinine Ratio 12.7, Glucose 301 H, Calcium 8.4 L, Total Bilirubin 0.50, AST 12 L, ALT 16, Alkaline Phosphatase 87, Total Protein 5.7 L, Albumin 3.0 L, Globulin 2.7, Albumin/Globulin Ratio 1.1 Clinical Impression(s) from Imaging Studies Brain CT 06/13/20 15:07 IMPRESSION: No evidence of acute intracranial or calvarial abnormality. If there is continuing concern for acute stroke, MRI is recommended. Electronically Signed: Jose Keller DO at 16:11 EST Tel [phone], Service support , Chest X-Ray 06/13/20 16:00 IMPRESSION: Question minimal atelectatic changes in left hilar region. There is no acute cardiopulmonary change. Electronically Signed: Jose Keller DO at 16:26 EST Tel [phone], Service support , Chest X-Ray 06/14/20 05:11 IMPRESSION: Left lung airspace disease that is more prominent on today's study than on the previous study and could represent pneumonia. at 0631 Reported and signed by: Erwin Mcclelland MD Electronically Signed: Erwin Mcclelland MD at 6:30 EST Tel , Service support , Current Medications Acetaminophen (Acetaminophen 325 Mg Tablet) 650 mg PO Q6H PRN PRN PRN Reason: PAIN 1-10 OR TEMPERATURE > 100.4F Last Admin: 06/13/20 22:12 Dose: 650 mg Documented by: Amlodipine Besylate (Amlodipine 10 Mg Tablet) 10 mg PO DAILY [facility] Atorvastatin Calcium (Atorvastatin Calcium 10 Mg Tablet) 10 mg PO QHS [facility] Last Admin: 06/13/20 21:21 Dose: 10 mg Documented by: Carvedilol (Carvedilol 12.5 Mg Tablet) 12.5 mg PO BID [facility] Dextrose (Dextrose 50%-Water 25 Gm/50 Ml Disp.Syrin) 0 gm IV X1 PRN; Protocol PRN Reason: Hypoglycemia Glucagon (Glucagon 1 Mg/Ml Syringe) 1 mg IM .X1 PRN PRN Reason: Hypoglycemia Heparin Sodium (Porcine) (Heparin Injection (Vial) 5,000 Unit/Ml Vial) 5,000 unit SC Q8 [facility] Last Admin: 06/14/20 06:17 Dose: Not Given Documented by: Insulin Human Lispro 100 unit/ (Sodium Chloride) 100 mls @ 7.575 mls/hr CONT INF .[id number] [facility]; Protocol Last Infusion: 06/14/20 01:00 Dose: 0.9 mls/hr Documented by: Insulin Glargine (Insulin Glargine 100 Units/Ml Pen) 15 units SC QHS [facility] Last Admin: 06/14/20 01:50 Dose: 18 u Documented by: Insulin Human Lispro (Insulin Lispro 100 Unit/Ml Insuln.Pen) 5 unit SC BREAKFAST [facility] Insulin Human Lispro (Insulin Lispro 100 Unit/Ml Insuln.Pen) 5 unit SC DINNER [facility] Insulin Human Lispro (Insulin Lispro 100 Unit/Ml Insuln.Pen) 5 unit SC LUNCH [facility] Insulin Human Lispro (Insulin Lispro 100 Unit/Ml Insuln.Pen) 0 unit SC 4X/DAYCM [facility]; Protocol Mycophenolate Mofetil (Mycophenolate Mofetil 250 Mg Capsule) 750 mg PO DAILY [facility] Mycophenolate Mofetil (Mycophenolate Mofetil 250 Mg Capsule) 500 mg PO QPM [facility] Last Admin: 06/13/20 21:22 Dose: 500 mg Documented by: Pantoprazole Sodium (Pantoprazole Sodium 20 Mg Tablet) 20 mg PO DAILY [facility] Prednisone (Prednisone 5 Mg Tablet) 5 mg PO DAILY@0800 [facility] Sodium Chloride (0.9% Saline Lock 10 Ml Syringe) 10 - 40 ml IV UD PRN PRN Reason: SALINE FLUSH Tacrolimus (Tacrolimus Anhydrous 1 Mg Capsule) 4 mg PO DAILY [facility] Tamsulosin HCl (Tamsulosin Hcl 0.4 Mg Capsule) 0.4 mg PO BID [facility] Last Admin: 06/13/20 21:22 Dose: 0.4 mg Documented by: Trimethoprim/Sulfamethoxazole (Smz/Tmp Ds Tablet) 0.5 tablet PO DAILY@0800 [facility] Venlafaxine HCl (Venlafaxine Xr 75 Mg Capsule) 75 mg PO DAILY [facility] Assessment/Plan All Active Problems Secondary DM with DKA (Acute) 1. Acute on CKD stage 3a s/p kidney transplant recipient due to dehydration from DKA. Creatinine back to baseline. 2. s/p cadaver kidney tx 07/2017. Resume home dose of prograf and cellcept. 3.DKA no prior history. Continue insulin, iv fluids 4 Hyponatremia due to hyperglycemia, pseudohyponatremia 5. AG Metabolic acidosis due to DKA 6. Hyperkalemia due to DKA resolved. 7. COVID positive 05/28/20 8. Hypertension resume home meds
[2020-06-14] MEDS: amLODIPine 10 MG Tablet PO (08:42)
[2020-06-14] MEDS: Venlafaxine XR 75 MG Capsule PO ×2 (08:42→12:23)
[2020-06-14] MEDS: Pantoprazole Sodium 20 MG Tablet PO (08:42)
[2020-06-14] MEDS: Insulin Lispro 100 UNIT/ML INSULN.PEN SC ×7 (08:43→22:24)
[2020-06-14] MEDS: predniSONE 5 MG Tablet PO (08:45)
[2020-06-14] MEDS: Tacrolimus Anhydrous 1 MG Capsule 4 MG PO (08:46)
[2020-06-14] MEDS: Mycophenolate Mofetil 250 MG Capsule 750 MG PO ×2 (08:47→21:11)
[2020-06-14 09:10] LABS: Bedside Glucose 301 mg/dL (70-110)
--- NOTE | 2020-06-14 09:29 | CASEMGMT ---
Pt had said during initial nursing assessment he does not have LW/POA, and declined any additional information. LORRIE Garcia
--- NOTE | 2020-06-14 09:38 | PCM.PROGNOTE ---
Patient Problems: Active and Suspected Problems Secondary DM with DKA (Acute) Subjective: Chief complaint: Follow-up after admission for DKA, secondary diabetes mellitus due to steroids and pseudohyponatremia. Patient seen and examined. No acute events overnight. This morning, he is feeling better but still complaining of nausea. No other complaints. His vital signs are stable. - Physical Exam Vitals/I&O's: Vital Signs Temp Pulse Resp BP Pulse Ox 97.8 F 88 17 140/97 H 97 06/14/20 08:33 06/14/20 08:33 06/14/20 08:33 06/14/20 08:33 06/14/20 08:33 Oxygen Delivery Method Room Air Weight: 167 lb 12.8 oz Body Mass Index (BMI) 26.9 Finger Stick Blood Glucose 231 Intake and Output for Last 24 Hours 06/12/20 06/13/20 06/14/20 23:59 23:59 23:59 Intake Total 2356.79 / 2358.49 1597.63 / 1597.63 Output Total 1550 / 1550 Balance 2356.79 / 1858.49 47.63 / 47.63 General: Alert, Oriented x3, Cooperative, No apparent distress HEENT: Atraumatic, PERRLA, EOMI, Normocephalic Oral: Moist Mucosa, No Gingival or Mucosal Lesions/ Ulcerations Neck: Supple, No JVD, Negative Carotid Bruits, Trachea Midline, Thyroid Normal Size and Texture Lungs: Clear to auscultation, Normal air movement, No rhonchi, No wheeze, No rales Cardiovascular: Regular rate, Regular Rhythm, Normal S1, Normal S2, PMI Normal Abdomen: Bowel Sounds Present, Soft, Non Tender, Non-Distended, No Hepato-splenomegaly, Obese Extremities: No clubbing, No cyanosis, No edema Skin: No rashes, No breakdown Lymphatic: No Cervical, Supraclavicular, or Inguinal Adenopathy Neurological: Cranial nerves II-XII grossly intact, Motor Exam 5/5 strength throughout Psych/Mental Status: Normal Affect, Appropriate, Alert and oriented to time, place, person, mood and affect Laboratory Results 06/13/20 15:28: WBC 12.5 H, RBC 4.96, Hgb 13.6, Hct 41.5, MCV 83.7, MCH 27.4, MCHC 32.8, RDW Std Deviation 41.9, RDW Coeff of Willian 13.8, Plt Count 216, MPV 10.9, Immature Gran % (Auto) 0.900, Neut % (Auto) 89.5 H, Lymph % (Auto) 2.7 L, [place] % (Auto) 6.7, Eos % (Auto) 0.0, Baso % (Auto) 0.2, Absolute Neuts (auto) 11.2 H, Absolute Lymphs (auto) 0.33 L, Nucleated RBC % 0, Differential Comment 06/13/20 15:28: Sodium 125 L, Potassium 5.1, Chloride 91 L, Carbon Dioxide 16.0 L, Anion Gap 18 H, BUN 29 H, Creatinine 2.15 H, Estim Creat Clear Calc 35.44, Est GFR (MDRD) Af Amer 41 L, Est GFR (MDRD) Non-Af 34 L, BUN/Creatinine Ratio 13.5, Glucose 679 H*, Calcium 8.9, Total Bilirubin 0.70, AST 10 L, ALT 17, Alkaline Phosphatase 110, Troponin I 0.028, Total Protein 6.6, Albumin 3.6, Globulin 3.0, Albumin/Globulin Ratio 1.2 06/13/20 15:28: Lactic Acid 1.4 06/13/20 15:28: Acetone Level MODERATE H 06/13/20 15:28: Hemoglobin A1c 11.0 H 06/13/20 15:33: POC Glucose > 500 H* 06/13/20 15:46: Specimen Type ALTON, Sample Site R Brach, VBG pH 7.32, VBG pO2 40, VBG HCO3 14 L, VBG Total CO2 15 L, VBG O2 Sat (Calc) 72 H, VBG Base Excess -12 L, POC Mix VBG pCO2 Pt Tmp 27.6 L, O2 Delivery Device Room Air 06/13/20 16:40: Urine Color Straw, Urine Clarity Clear, Urine pH 5.0, Ur Specific [place] 1.015, Urine Protein 15 H, Urine Glucose (UA) 1000 H, Urine Ketones 150 H, Urine Occult Blood 50 H, Urine Nitrite Negative, Urine Bilirubin Negative, Urine Urobilinogen Normal, Ur Leukocyte Esterase Negative, Urine RBC 0 SEEN, Urine WBC 0 SEEN, Ur Squamous Epith Cells 0 SEEN, Urine Bacteria 0 SEEN, Urine Mucus 0 SEEN 06/13/20 16:54: POC Glucose > 500 H* 06/13/20 17:00: COVID-19 (DIANE) Cancelled 06/13/20 18:10: POC Glucose 478 H* 06/13/20 18:59: POC Glucose 423 H 06/13/20 20:00: POC Glucose 413 H 06/13/20 21:15: Sodium 133 L, Potassium 4.1, Chloride 104, Carbon Dioxide 17.0 L, Anion Gap 12, BUN 26 H, Creatinine 1.81 H, Estim Creat Clear Calc 42.10, Est GFR (MDRD) Af Amer 50 L, Est GFR (MDRD) Non-Af 42 L, BUN/Creatinine Ratio 14.4, Glucose 375 H, Calcium 8.7 06/13/20 21:17: POC Glucose 358 H 06/13/20 22:15: POC Glucose 326 H 06/13/20 23:00: POC Glucose 281 H 06/14/20 00:50: POC Glucose 231 H 06/14/20 00:55: Sodium 137, Potassium 4.0, Chloride 108 H, Carbon Dioxide 20.0 L, Anion Gap 9, BUN 22 H, Creatinine 1.59 H, Estim Creat Clear Calc 47.93, Est GFR (MDRD) Af Amer 59 L, Est GFR (MDRD) Non-Af 48 L, BUN/Creatinine Ratio 13.8, Glucose 256 H, Calcium 8.2 L 06/14/20 05:15: WBC 11.0, RBC 4.69, Hgb 13.0, Hct 39.5 L, MCV 84.2, MCH 27.7, MCHC 32.9, RDW Std Deviation 42.3, RDW Coeff of Willian 13.9, Plt Count 192, MPV 10.4, Immature Gran % (Auto) 1.300 H, Neut % (Auto) 86.3 H, Lymph % (Auto) 4.6 L, [place] % (Auto) 7.5, Eos % (Auto) 0.1, Baso % (Auto) 0.2, Absolute Neuts (auto) 9.5 H, Absolute Lymphs (auto) 0.51 L, Nucleated RBC % 0, Differential Comment SCANNED 06/14/20 05:15: Sodium 135 L, Potassium 4.4, Chloride 106, Carbon Dioxide 18.0 L, Anion Gap 11, BUN 19 H, Creatinine 1.50 H, Estim Creat Clear Calc 50.80, Est GFR (MDRD) Af Amer 63, Est GFR (MDRD) Non-Af 52 L, BUN/Creatinine Ratio 12.7, Glucose 301 H, Calcium 8.4 L, Total Bilirubin 0.50, AST 12 L, ALT 16, Alkaline Phosphatase 87, Total Protein 5.7 L, Albumin 3.0 L, Globulin 2.7, Albumin/Globulin Ratio 1.1 06/14/20 08:37: POC Glucose 301 H Current Medications Acetaminophen (Acetaminophen 325 Mg Tablet) 650 mg PO Q6H PRN PRN PRN Reason: PAIN 1-10 OR TEMPERATURE > 100.4F Last Admin: 06/13/20 22:12 Dose: 650 mg Documented by: Amlodipine Besylate (Amlodipine 10 Mg Tablet) 10 mg PO DAILY [facility] Last Admin: 06/14/20 08:42 Dose: 10 mg Documented by: Atorvastatin Calcium (Atorvastatin Calcium 10 Mg Tablet) 10 mg PO QHS [facility] Last Admin: 06/13/20 21:21 Dose: 10 mg Documented by: Carvedilol (Carvedilol 12.5 Mg Tablet) 12.5 mg PO BID [facility] Last Admin: 06/14/20 08:38 Dose: 12.5 mg Documented by: Dextrose (Dextrose 50%-Water 25 Gm/50 Ml Disp.Syrin) 0 gm IV X1 PRN; Protocol PRN Reason: Hypoglycemia Glucagon (Glucagon 1 Mg/Ml Syringe) 1 mg IM .X1 PRN PRN Reason: Hypoglycemia Heparin Sodium (Porcine) (Heparin Injection (Vial) 5,000 Unit/Ml Vial) 5,000 unit SC Q8 [facility] Last Admin: 06/14/20 06:17 Dose: Not Given Documented by: Insulin Human Lispro 100 unit/ (Sodium Chloride) 100 mls @ 7.575 mls/hr CONT INF .[id number] [facility]; Protocol Last Admin: 06/14/20 09:16 Dose: Not Given Documented by: Insulin Glargine (Insulin Glargine 100 Units/Ml Pen) 15 units SC QHS [facility] Last Admin: 06/14/20 01:50 Dose: 18 u Documented by: Insulin Human Lispro (Insulin Lispro 100 Unit/Ml Insuln.Pen) 5 unit SC BREAKFAST [facility] Last Admin: 06/14/20 08:43 Dose: 5 units Documented by: Insulin Human Lispro (Insulin Lispro 100 Unit/Ml Insuln.Pen) 5 unit SC DINNER [facility] Insulin Human Lispro (Insulin Lispro 100 Unit/Ml Insuln.Pen) 5 unit SC LUNCH [facility] Insulin Human Lispro (Insulin Lispro 100 Unit/Ml Insuln.Pen) 0 unit SC 4X/DAYCM [facility]; Protocol Last Admin: 06/14/20 08:44 Dose: 6 units Documented by: Mycophenolate Mofetil (Mycophenolate Mofetil 250 Mg Capsule) 750 mg PO DAILY [facility] Last Admin: 06/14/20 08:47 Dose: 750 mg Documented by: Mycophenolate Mofetil (Mycophenolate Mofetil 250 Mg Capsule) 500 mg PO QPM [facility] Last Admin: 06/13/20 21:22 Dose: 500 mg Documented by: Pantoprazole Sodium (Pantoprazole Sodium 20 Mg Tablet) 20 mg PO DAILY [facility] Last Admin: 06/14/20 08:42 Dose: 20 mg Documented by: Prednisone (Prednisone 5 Mg Tablet) 5 mg PO DAILY@0800 [facility] Last Admin: 06/14/20 08:45 Dose: 5 mg Documented by: Sodium Chloride (0.9% Saline Lock 10 Ml Syringe) 10 - 40 ml IV UD PRN PRN Reason: SALINE FLUSH Tacrolimus (Tacrolimus Anhydrous 1 Mg Capsule) 4 mg PO DAILY [facility] Last Admin: 06/14/20 08:46 Dose: 4 mg Documented by: Tamsulosin HCl (Tamsulosin Hcl 0.4 Mg Capsule) 0.4 mg PO BID [facility] Last Admin: 06/14/20 08:40 Dose: 0.4 mg Documented by: Trimethoprim/Sulfamethoxazole (Smz/Tmp Ds Tablet) 0.5 tablet PO DAILY@0800 [facility] Last Admin: 06/14/20 08:41 Dose: 0.5 tablet Documented by: Venlafaxine HCl (Venlafaxine Xr 75 Mg Capsule) 75 mg PO DAILY [facility] Last Admin: 06/14/20 08:42 Dose: 75 mg Documented by: Medical Necessity - Tobacco Use Smoking Status: Former smoker Tobacco Use: Non-smoker Assessment/Plan All Active Problems Secondary DM with DKA (Acute) This is a 54 years old male patient presented to the emergency room because of confusion, found to have DKA and newly diagnosed diabetes mellitus secondary to long-term use of steroids. #1 acute diabetic ketoacidosis: He has been off IV insulin drip, anion gap closed. Blood sugar improved. Patient was started on Lantus and premeal Humalog, started on ADA diet. Patient never been known to be diabetic, this is new onset secondary diabetes mood secondary to steroids. Vital signs are stable. Plan: Continue Lantus and premeal Humalog, Accu-Cheks every 6 hours, nutrition consult for diabetic education, repeat BMP tomorrow. #2 newly diagnosed diabetes mellitus secondary to steroids: Patient has been on prednisone for history of kidney transplant. Currently, he is on Lantus and Humalog premeals. Plan as above. #3 hyponatremia: Due to pseudohyponatremia secondary to hyperglycemia. Serum sodium improved after correcting hyperglycemia. #4 acute encephalopathy: Metabolic secondary to DKA, resolved. CT scan brain showed no acute findings. He has been afebrile, WBC is back to normal. #5 recent COVID-19 infection: Without hypoxia. Patient tested positive for COVID-19 on May 28, 2020 and he supposed to be quarantined until June 13, 2020 which was yesterday. Chest x-ray reviewed Susie, patient has been on room air. He completed quarantine requirement yesterday. #6 JOYCE on stage III chronic kidney disease: In the setting of kidney transplant. Apparently, after transplant his creatinine has been around 1.4 to 1.6 mg/dL. Admission creatinine was 2.29, came down to 1.50 today. Improving. Nephrology consulted. #7 status post kidney transplant: Kidney function improved, continue CellCept, Prograf, prophylactic Bactrim DS and prednisone. Nephrology consulted. #8 hypertension: Blood pressure stable, continue Norvasc and Coreg. #9 hyperlipidemia: Continue statins. #10 DVT prophylaxis: Subcu heparin. This note was generated with [employer] dictation software. It may contain incorrect words, spelling, and punctuation that were not noted in checking the note before signing. Inpatient E&M: 23595 Subs Hosp L2
--- NOTE | 2020-06-14 10:59 | PCM.NTREPORT ---
Nutrition Therapy Report - History Nutrition Services has been consulted to:: Manage nutrient details of diet order Current diet / nutrition support order:: Carbohdyrate Controlled - Anthropometric Measurements Height:: 5 ft 6 in Weight:: 76.113 kg Body Mass Index (BMI):: 27.1 - Relevant Labs Relevant Labs:: WBC 12.5 K/mm3 (4.4-11.0) H 06/13/20 15:28 Hct 39.5 % (40-54) L 06/14/20 05:15 Immature Gran % (Auto) 1.300 % (0.0-0.9) H 06/14/20 05:15 Neut % (Auto) 86.3 % (47-70) H 06/14/20 05:15 Lymph % (Auto) 4.6 % (19-41) L 06/14/20 05:15 Absolute Neuts (auto) 9.5 X10^3/uL (2.0-7.7) H 06/14/20 05:15 Absolute Lymphs (auto) 0.51 X10^3/uL (0.83-4.51) L 06/14/20 05:15 Sodium 135 mmol/L (136-145) L 06/14/20 05:15 Chloride 108 mmol/L (98-107) H 06/14/20 00:55 Carbon Dioxide 18.0 mmol/L (21.0-32.0) L 06/14/20 05:15 Anion Gap 18 (5-15) H 06/13/20 15:28 BUN 19 mg/dL (7-18) H 06/14/20 05:15 Creatinine 1.50 mg/dL (0.70-1.30) H 06/14/20 05:15 Est GFR (MDRD) Af Amer 59 mL/min (>60) L 06/14/20 00:55 Est GFR (MDRD) Non-Af 52 mL/min (>60) L 06/14/20 05:15 Glucose 301 mg/dL (74-106) H 06/14/20 05:15 Hemoglobin A1c 11.0 % (3.8-5.6) H 06/13/20 15:28 Calcium 8.4 mg/dL (8.5-10.1) L 06/14/20 05:15 AST 12 U/L (15-37) L 06/14/20 05:15 Total Protein 5.7 g/dL (6.4-8.2) L 06/14/20 05:15 Albumin 3.0 g/dL (3.2-5.0) L 06/14/20 05:15 - Assessment Food / Nutrition-Related History:: Pt in COVID isolation- spoke w/ pt via phone. States poor appetite/intake w/ decreased portions at 2 meals per day x 3 weeks RT COVID dx. Reports unintentional wt loss of 20# w/ UBW prior to COVID of 182#; CBW 167.8#- wt loss 8% x 3 weeks (significant). States experiencing nausea- no episodes of vomiting at this time- states last emesis suspects d/t change in migraine medication. Unable to complete NFPE at this time- pt suspects drop in clothing size, has been wearing sweats so unsure of current size. 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 No hx of DM, on chronic steroids & immunosupressants causing increased BG- A1C 11%, poor glycemic control; experiencing polydipsia & polyuria. Pt notes brother w/ hx of DM- states has been somewhat preparing for DM dx. Notes several diet changes over the past several years d/t renal complications & transplant. - Nutrition Diagnosis Problem / Etiology / Signs & Symptoms (PES):: Severe malnutrition in the context of acute illness/injury RT inadequate oral intake d/t COVID illness AEB unintentional wt loss of 14.2#/8% x 3 weeks, </= 50% energy intake compared to estimated energy needs x 3 weeks. Severe PCM:: Acute Illness - Nutrition Intervention Nutrition Prescription:: 8034-0090 calories; 70-80 grams protein - Food / Nutrient Delivery Interventions Nutrition support ordered as / adjusted to:: Continue CHO controlled diet- will provide Glucerna shake 120 ml w/ pt meals for additional maggi/pro if consumed. Nutrition education provided?: Yes - See Nutrition Therapy Assessment - MNT Monitoring Further MNT monitoring and evaluation required?: Yes MNT Follow-up in:: 3-5 days
[2020-06-14] MEDS: 0.9% Saline Lock 10 ML Syringe IV (12:22)
[2020-06-14] MEDS: Ondansetron 4 MG/2 ML Vial IV (12:23)
[2020-06-14 12:36] LABS: Bedside Glucose 176 mg/dL (70-110)
--- NOTE | 2020-06-14 13:05 | CM.UR ---
Attempted to call patient to perform RN CM assessment however no answer in room at this time. Steven England RN, CCM.
--- NOTE | 2020-06-14 13:59 | CM.UR ---
RN CM Assessment Called patient d/t him being on Covid precautions. Introduced role of RN CM to patient.? Patient is alert, oriented and able?to participate in RN CM Assessment. ?Care providers, pharmacy, and demographics verified. Presentation: Confusion Admit Dx: Acute DKA Re-Admit: No Barriers/Issues: none PCP: Dr. Spence Specialists: Dr. Knight and Transplant clinic at [facility]. Sees both every 6 months Preferred Pharmacy: [facility] Insurance: MCR/UMR States will be losing the MCR in July d/t 3 years since transplant. Rx Benefit:? Yes, denies any prpblems covering his medication copays ?LNOK: , Annie LW/HPOA: Yes, annie. Explained not on file here at hospital. Living Arrangements:? Lives in 1 story home with . Has 3 steps to get in. no accessibility problems at this time. ADL?s: Independent Transportation: Self/ DME: Cane denies any needs for additional DME at this time. States does have some preferences for DME companies but depends upon type of equipment. explained should a need arise-we will discuss further. HHC: None SNF: None Goal: Home, denies any needs at this time. DC PLAN: Home. Need a glucometer and supplies. Also discussed with OPHELIA Paniagua. Explained that she may want to see if can get prior and bring it in so he can be taught on his own glucometer. Also sent pamphlet to floor for diabetic education. Alerted patient that case management will remain available should any needs arise. Verb understanding. Steven England RN, CCM.
[2020-06-14] MEDS: Heparin Injection (Vial) 5,000 UNIT/ML VIAL 5000 UNIT SC ×2 (14:31→21:10)
[2020-06-14 17:56] LABS: Bedside Glucose 176 mg/dL (70-110)
[2020-06-14] MEDS: Tacrolimus Anhydrous 1 MG Capsule 2 MG PO (21:11)
[2020-06-14] MEDS: Atorvastatin Calcium 10 MG Tablet PO (21:12)
[2020-06-14 22:50] LABS: Bedside Glucose 311 mg/dL (70-110)
--- NOTE | 2020-06-14 23:12 | NURSING ---
Educated patient on how to self-administer insulin. Pt. was able to give himself both ordered doses of insulin this PM under guidance and supervision of this RN. Educated patient on use of sliding scale. Patient was able to explain back the procedure to this RN.
[2020-06-15] VITALS (7 sets, daily range): BP systolic 102–117; BP diastolic 64–74; PULSE 58–74; RESP 16–22; TEMP 36.1; O2SAT 95–98
[2020-06-15 05:07] LABS: Absolute Lymphocyte Count 0.58 X10^3/uL (0.83-4.51); Absolute Neutrophil Count 4.7 X10^3/uL (2.0-7.7); Basophil# 0.02 X10^3/uL; Basophil% 0.3 % (0-1); Eosinophil# 0.07 X10^3/uL; Eosinophils% 1.1 % (0-5); Hematocrit 37.7 % (40-54); Hemoglobin 12.3 g/dL (13.0-16.5); Lymphocyte # 0.58 X10^3/ul (4.0); Lymphocyte % 9.4 % (19-41); Mean Corp Hgb Conc 32.6 g/dL (32-36); Mean Corpuscular Hgb 27.6 pg (27.0-32.0); Mean Corpuscular Volume 84.5 fL (80-94); Mean Platelet Vol. 9.9 fl (6.2-12.0); Monocyte# 0.74 X10^3/uL; NRBC Flagged by Analyzer 0 % (0-5); Neutrophil # 4.68 X10^3/uL (2.7-7.7); Neutrophil % 76.2 % (47-70); POSITIVE DIFFERENTIAL YES; Platelet Count 156 K/mm3 (150-450); RBC Distribution Width SD 42.8 fl (35.1-43.9); Red Blood Count 4.46 M/mm3 (4.6-6.2); White Blood Count 6.2 K/mm3 (4.4-11.0)
[2020-06-15 05:14] LABS: Differential Indicated SCAN CRITERIA MET
[2020-06-15 05:22] LABS: Anion Gap 9 (5-15); BUN 22 mg/dL (7-18); BUN/Creat Ratio 14.6 RATIO (10-20); Calcium,Total 8.7 mg/dL (8.5-10.1); Chloride 106 mmol/L (98-107); Creatinine, Serum 1.51 mg/dL (0.70-1.30); EST Glomerular Filtration Rate 51 mL/min (>60); Est Glom Filt Rate - Afr Amer 62 mL/min (>60); Estimated Creatinine Clearance 50.47 ml/min; Glucose 233 mg/dL (74-106); Phosphorus 3.2 mg/dL (2.5-4.9); Potassium 3.5 mmol/L (3.5-5.1); Sodium Level 136 mmol/L (136-145)
[2020-06-15] MEDS: Heparin Injection (Vial) 5,000 UNIT/ML VIAL 5000 UNIT SC (06:21)
[2020-06-15] MEDS: Smz/Tmp Ds Tablet 0.5 TABLET PO (08:15)
[2020-06-15] MEDS: Insulin Lispro 100 UNIT/ML INSULN.PEN SC ×2 (08:16)
[2020-06-15] MEDS: Carvedilol 12.5 MG Tablet PO (08:18)
[2020-06-15] MEDS: Pantoprazole Sodium 20 MG Tablet PO (08:18)
[2020-06-15] MEDS: predniSONE 5 MG Tablet PO (08:19)
[2020-06-15] MEDS: Tamsulosin HCl 0.4 MG Capsule PO (08:19)
[2020-06-15] MEDS: amLODIPine 10 MG Tablet PO (08:19)
[2020-06-15] MEDS: Tacrolimus Anhydrous 1 MG Capsule 3 MG PO (08:20)
[2020-06-15] MEDS: Mycophenolate Mofetil 250 MG Capsule 750 MG PO (08:22)
[2020-06-15 08:46] LABS: Bedside Glucose 243 mg/dL (70-110)
--- NOTE | 2020-06-15 09:55 | PCM.DC ---
- Discharge Diagnoses Current Active Problems: Current Active and Chronic Problems Secondary DM with DKA (Acute) Hyperlipidemia (Chronic) Hypertension (Chronic) [place] syndrome (Chronic) You will use the following diet at home:: Calorie/Carbohydrate Controlled (specify 1200, 1400, etc) - 1800 maggi., Cardiac Your food should be the consistency of: Regular Discharge Activity: Return to Normal Activity Return to work on:: 06/23/20 Weight Bearing Status: Weight bearing as tolerated Call your doctor if you observe: Fever of 101 or Higher, Shortness of breath, Dizziness, Fainting spells, Chest pain, Increased palpitations (irregular heartbeat), Uncontrolled pain Instructions: Using a Blood Sugar Log, Hyperglycemia (High Blood Sugar), Hypoglycemia (Low Blood Sugar), How to Check Your Blood Sugar, What Is Type 2 Diabetes? Allergies/Adverse Reactions: Allergies acetaminophen [From Percocet] Adverse Reaction (Verified 06/13/20 14:39) Other amoxicillin Adverse Reaction (Verified 06/13/20 14:39) Other clonazepam [From Klonopin] Adverse Reaction (Verified 06/13/20 14:39) Other milk Adverse Reaction (Verified 06/13/20 14:39) Diarrhea oxycodone [From Percocet] Adverse Reaction (Verified 06/13/20 14:39) Other tomato [Tomato] Adverse Reaction (Verified 06/13/20 14:39) Diarrhea Medications to take at Discharge Amlodipine [Norvasc] 10 mg PO DAILY 11/04/17 Melatonin 5 mg PO QHS 11/04/17 Mycophenolate Mofetil [Cellcept] 750 mg PO BID 11/04/17 Omeprazole [Prilosec] 20 mg PO DAILY 11/04/17 Sulfamethoxazole/Trimethoprim [Bactrim 400-80 mg Tablet] 1 tab PO DAILY 11/04/17 Tacrolimus Anhydrous [Prograf] 2 mg PO QHS 11/04/17 Tacrolimus Anhydrous [Prograf] 3 mg PO DAILY 11/04/17 Tamsulosin HCl [Flomax] 0.4 mg PO BID 11/04/17 Carvedilol [Coreg (Beta Maria Esther)] 12.5 mg PO BID 06/13/20 Prednisone 5 mg PO DAILY 06/13/20 Simvastatin [Zocor] 20 mg PO QHS 06/13/20 Aspirin E.C. [Ecotrin] 81 mg PO DAILY@0800 06/14/20 Venlafaxine XR [Effexor Xr] 150 mg PO DAILY 06/14/20 Insulin Glargine [Lantus SoloStar Pen] 15 units SC QHS #2 pen 06/15/20 Insulin Lispro [Humalog KwikPen] 5 unit SC BREAKFAST #1 insuln.pen 06/15/20 Insulin Lispro [Humalog KwikPen] 5 unit SC DINNER #2 insuln.pen 06/15/20 Insulin Lispro [Humalog KwikPen] 5 unit SC LUNCH #1 insuln.pen 06/15/20 Pen Needle, Diabetic [Pen Needle] 1 ea MC 4X/DAY #120 dis.needle 06/15/20 The following prescriptions were given: Insulin Lispro [Humalog KwikPen] 5 unit SC DINNER #2 insuln.pen Transmission Status: Received by [facility]/pharmacy #[id number] Insulin Lispro [Humalog KwikPen] 5 unit SC LUNCH #1 insuln.pen Insulin Lispro [Humalog KwikPen] 5 unit SC BREAKFAST #1 insuln.pen Insulin Glargine [Lantus SoloStar Pen] 15 units SC QHS #2 pen Transmission Status: Received by [facility]/pharmacy #[id number] Pen Needle, Diabetic [Pen Needle] 1 ea MC 4X/DAY #120 dis.needle Transmission Status: P[id number] Orders to be completed after discharge: Glucometer Location: None Selected Primary Care Physician: Azael Ramos MD [Primary Care Provider] - Please follow up with your Primary Care Physician in: 1 week. Test Results: Test results from this visit will be discussed in further detail at your follow-up appointment, if applicable.
--- NOTE | 2020-06-15 13:51 | DS.PCM_ITS ---
Discharge Date and Diagnosis - Problem List Patient Problems: Active and Suspected Problems Secondary DM with DKA (Acute) Date of Admission: 06/13/20 Date of Discharge: 06/15/20 - Primary Discharge Diagnosis Acute Problems: Active Problems #1 acute diabetic ketoacidosis. #2 new onset type 2 diabetes mellitus/secondary diabetes due to steroids. #3 pseudohyponatremia, resolved. #4 JOYCE on stage III chronic kidney disease. #5 acute encephalopathy, resolved. #6 recent COVID-19 infection, stable without hypoxia. - Secondary Discharge Diagnosis Chronic Problems: Chronic Problems Status post kidney transplant (Chronic) Hyperlipidemia (Chronic) Hypertension (Chronic) ESRD (end stage renal disease) (Chronic) Alport syndrome (Chronic) Hospital Course and Treatment Imaging Results: Clinical Impression(s) from Imaging Studies Brain CT 06/13/20 15:07 IMPRESSION: No evidence of acute intracranial or calvarial abnormality. If there is continuing concern for acute stroke, MRI is recommended. Electronically Signed: Jose Keller DO at 16:11 EST Tel [phone], Service support , Chest X-Ray 06/13/20 16:00 IMPRESSION: Question minimal atelectatic changes in left hilar region. There is no acute cardiopulmonary change. Electronically Signed: Jose Keller DO at 16:26 EST Tel [phone], Service support , Chest X-Ray 06/14/20 05:11 IMPRESSION: Left lung airspace disease that is more prominent on today's study than on the previous study and could represent pneumonia. at 0631 Reported and signed by: Erwin Mcclelland MD Electronically Signed: Erwin Mcclelland MD at 6:30 EST Tel , Service support , Operations: None, - Procedures: None Summary of Care Provided: Patient seen and examined on the day of discharge and appeared to be stable to be discharged home. He is feeling better, nausea resolved. No other complaints. Vital signs are stable. This is a 54 years old male patient presented to the emergency room because of confusion, found to have DKA and newly diagnosed type II diabetes mellitus/secondary diabetes to long-term use of steroids. #1 acute diabetic ketoacidosis: Patient was admitted to intensive care unit, started on DKA protocol with IV insulin drip. Hemoglobin A1c was 11%. Patient had no history of diabetes mellitus. With IV insulin drip, anion gap closed and blood sugar went down to around 200-300. Patient was started on diet and s tarted on Lantus as well as premeal Humalog. Blood sugar has been fluctuating anywhere from 175-300. Patient discharged home on insulin Lantus 15 units nightly and premeal Humalog 5 units before each meal. #2 newly diagnosed type II diabetes mellitus/secondary diabetes to steroids: Patient has been on prednisone for history of kidney transplant. Started on Lantus and Humalog as mentioned above. Hemoglobin A1c was 11%. #3 hyponatremia: Due to pseudohyponatremia secondary to hyperglycemia. Serum sodium normalized after correcting hyperglycemia. #4 acute encephalopathy: Metabolic secondary to DKA, resolved. CT scan brain showed no acute findings. Resolved, patient remained alert and oriented x3 after treatment. #5 recent COVID-19 infection: Without hypoxia. Patient tested positive for COVID-19 on May 28, 2020 and he supposed to be quarantined until June 13, 2020 which was yesterday. Chest x-ray reviewed without acute findings patient has been on room air. He completed quarantine requirement. #6 JOYCE on stage III chronic kidney disease: In the setting of kidney transplant. Apparently, after transplant his creatinine has been around 1.4 to 1.6 mg/dL. Admission creatinine was 2.29, came down to 1.51 upon discharge. Kidney function returned back to baseline. #7 status post kidney transplant: Kidney function improved, continued on CellCept, Prograf, prophylactic Bactrim DS and prednisone. #8 hypertension: Blood pressure stable, continued on Norvasc and Coreg. Patient discharged home in a stable medical condition, discharged on Lantus nightly as well as premeal Humalog as above, instructions were given for how to check blood glucose, prescription was given for glucometer with accessories, continued on his previous medications without any changes, recommended follow-up with PCP in 1 week and follow-up with nephrology as scheduled. This note was generated with [employer] dictation software. It may contain incorrect words, spelling, and punctuation that were not noted in checking the note before signing. Patient Problems: Active and Suspected Problems Secondary DM with DKA (Acute) - Physical Exam Vitals/I&O's: Vital Signs Temp Pulse Resp BP Pulse Ox 97.0 F L 72 22 H 102/67 98 06/15/20 09:57 06/15/20 09:57 06/15/20 09:57 06/15/20 09:57 06/15/20 09:57 Oxygen Delivery Method Room Air Weight: 166 lb 8 oz Body Mass Index (BMI) 27.1 Finger Stick Blood Glucose 231 Intake and Output for Last 24 Hours 06/13/20 06/14/20 06/15/20 23:59 23:59 23:59 Intake Total 2356.79 / 2358.49 1597.63 / 1597.63 250 / 250 Output Total 1550 / 1875 700 / 700 Balance 2356.79 / 1858.49 47.63 / -277.37 -450 / -450 General: Alert, Oriented x3, Cooperative, No apparent distress HEENT: Atraumatic, PERRLA, EOMI, Normocephalic Oral: Moist Mucosa, No Gingival or Mucosal Lesions/ Ulcerations Neck: Supple, No JVD, Negative Carotid Bruits, Trachea Midline, Thyroid Normal Size and Texture Lungs: Clear to auscultation, Normal air movement, No rhonchi, No wheeze, No rales Cardiovascular: Regular rate, Regular Rhythm, Normal S1, Normal S2, PMI Normal Abdomen: Bowel Sounds Present, Soft, Non Tender, Non-Distended, No Hepato- splenomegaly Extremities: No clubbing, No cyanosis, No edema Skin: No rashes, No breakdown Lymphatic: No Cervical, Supraclavicular, or Inguinal Adenopathy Neurological: Cranial nerves II-XII grossly intact, Neuro grossly intact Psych/Mental Status: Normal Affect, Appropriate Laboratory Results 06/14/20 16:47: POC Glucose 176 H 06/14/20 22:22: POC Glucose 311 H 06/15/20 04:55: WBC 6.2, RBC 4.46 L, Hgb 12.3 L, Hct 37.7 L, MCV 84.5, MCH 27.6, MCHC 32.6, RDW Std Deviation 42.8, RDW Coeff of Willian 14.0, Plt Count 156, MPV 9.9, Immature Gran % (Auto) 1.000 H, Neut % (Auto) 76.2 H, Lymph % (Auto) 9.4 L, [place] % (Auto) 12.0 H, Eos % (Auto) 1.1, Baso % (Auto) 0.3, Absolute Neuts (auto) 4.7, Absolute Lymphs (auto) 0.58 L, Nucleated RBC % 0 06/15/20 04:55: Sodium 136, Potassium 3.5, Chloride 106, Carbon Dioxide 21.0, Anion Gap 9, BUN 22 H, Creatinine 1.51 H, Estim Creat Clear Calc 50.47, Est GFR (MDRD) Af Amer 62, Est GFR (MDRD) Non-Af 51 L, BUN/Creatinine Ratio 14.6, Glucose 233 H, Calcium 8.7, Phosphorus 3.2 06/15/20 08:12: POC Glucose 243 H Current Medications Acetaminophen (Acetaminophen 325 Mg Tablet) 650 mg PO Q6H PRN PRN PRN Reason: PAIN 1-10 OR TEMPERATURE > 100.4F Last Admin: 06/13/20 22:12 Dose: 650 mg Documented by: Amlodipine Besylate (Amlodipine 10 Mg Tablet) 10 mg PO DAILY [facility] Last Admin: 06/15/20 08:19 Dose: 10 mg Documented by: Atorvastatin Calcium (Atorvastatin Calcium 10 Mg Tablet) 10 mg PO QHS [facility] Last Admin: 06/14/20 21:12 Dose: 10 mg Documented by: Carvedilol (Carvedilol 12.5 Mg Tablet) 12.5 mg PO BID [facility] Last Admin: 06/15/20 08:18 Dose: 12.5 mg Documented by: Dextrose (Dextrose 50%-Water 25 Gm/50 Ml Disp.Syrin) 0 gm IV X1 PRN; Protocol PRN Reason: Hypoglycemia Glucagon (Glucagon 1 Mg/Ml Syringe) 1 mg IM .X1 PRN PRN Reason: Hypoglycemia Heparin Sodium (Porcine) (Heparin Injection (Vial) 5,000 Unit/Ml Vial) 5,000 unit SC Q8 [facility] Last Admin: 06/15/20 06:21 Dose: 5,000 unit Documented by: Insulin Human Lispro 100 unit/ (Sodium Chloride) 100 mls @ 7.575 mls/hr CONT INF .[id number] [facility]; Protocol Last Admin: 06/14/20 22:52 Dose: Not Given Documented by: Insulin Glargine (Insulin Glargine 100 Units/Ml Pen) 15 units SC QHS [facility] Last Admin: 06/14/20 22:25 Dose: 15 u Documented by: Insulin Human Lispro (Insulin Lispro 100 Unit/Ml Insuln.Pen) 5 unit SC BREAKFAST [facility] Last Admin: 06/15/20 08:16 Dose: 5 units Documented by: Insulin Human Lispro (Insulin Lispro 100 Unit/Ml Insuln.Pen) 5 unit SC DINNER [facility] Last Admin: 06/14/20 16:49 Dose: 5 units Documented by: Insulin Human Lispro (Insulin Lispro 100 Unit/Ml Insuln.Pen) 5 unit SC LUNCH [facility] Last Admin: 06/14/20 12:04 Dose: 5 units Documented by: Insulin Human Lispro (Insulin Lispro 100 Unit/Ml Insuln.Pen) 0 unit SC 4X/DAYCM [facility]; Protocol Last Admin: 06/15/20 08:16 Dose: 4 units Documented by: Mycophenolate Mofetil (Mycophenolate Mofetil 250 Mg Capsule) 750 mg PO BID [facility] Last Admin: 06/15/20 08:22 Dose: 750 mg Documented by: Ondansetron HCl (Ondansetron 4 Mg/2 Ml Vial) 4 mg IV Q8H PRN PRN PRN Reason: NAUSEA/VOMITING Last Admin: 06/14/20 12:23 Dose: 4 mg Documented by: Pantoprazole Sodium (Pantoprazole Sodium 20 Mg Tablet) 20 mg PO DAILY [facility] Last Admin: 06/15/20 08:18 Dose: 20 mg Documented by: Prednisone (Prednisone 5 Mg Tablet) 5 mg PO DAILY@0800 [facility] Last Admin: 06/15/20 08:19 Dose: 5 mg Documented by: Sodium Chloride (0.9% Saline Lock 10 Ml Syringe) 10 - 40 ml IV UD PRN PRN Reason: SALINE FLUSH Last Admin: 06/14/20 12:22 Dose: 20 ml Documented by: Tacrolimus (Tacrolimus Anhydrous 1 Mg Capsule) 2 mg PO QHS [facility] Last Admin: 06/14/20 21:11 Dose: 2 mg Documented by: Tacrolimus (Tacrolimus Anhydrous 1 Mg Capsule) 3 mg PO DAILY [facility] Last Admin: 06/15/20 08:20 Dose: 3 mg Documented by: Tamsulosin HCl (Tamsulosin Hcl 0.4 Mg Capsule) 0.4 mg PO BID [facility] Last Admin: 06/15/20 08:19 Dose: 0.4 mg Documented by: Trimethoprim/Sulfamethoxazole (Smz/Tmp Ds Tablet) 0.5 tablet PO DAILY@0800 [facility] Last Admin: 06/15/20 08:15 Dose: 0.5 tablet Documented by: Venlafaxine HCl (Venlafaxine Xr 150 Mg Capsule) 150 mg PO DAILY [facility] Last Admin: 06/15/20 13:32 Dose: Not Given Documented by: Discharge Activity: Return to Normal Activity Return to work on:: 06/23/20 Weight Bearing Status: Weight bearing as tolerated Call your doctor if you observe: Fever of 101 or Higher, Shortness of breath, Dizziness, Fainting spells, Chest pain, Increased palpitations (irregular heartbeat), Uncontrolled pain Home Medications: Medications to take at Discharge Amlodipine [Norvasc] 10 mg PO DAILY 11/04/17 Melatonin 5 mg PO QHS 11/04/17 Mycophenolate Mofetil [Cellcept] 750 mg PO BID 11/04/17 Omeprazole [Prilosec] 20 mg PO DAILY 11/04/17 Sulfamethoxazole/Trimethoprim [Bactrim 400-80 mg Tablet] 1 tab PO DAILY 11/04/17 Tacrolimus Anhydrous [Prograf] 2 mg PO QHS 11/04/17 Tacrolimus Anhydrous [Prograf] 3 mg PO DAILY 11/04/17 Tamsulosin HCl [Flomax] 0.4 mg PO BID 11/04/17 Carvedilol [Coreg (Beta Maria Esther)] 12.5 mg PO BID 06/13/20 Prednisone 5 mg PO DAILY 06/13/20 Simvastatin [Zocor] 20 mg PO QHS 06/13/20 Aspirin E.C. [Ecotrin] 81 mg PO DAILY@0800 06/14/20 Venlafaxine XR [Effexor Xr] 150 mg PO DAILY 06/14/20 Insulin Glargine [Lantus SoloStar Pen] 15 units SC QHS #2 pen 06/15/20 Insulin Lispro [Humalog KwikPen] 5 unit SC BREAKFAST #1 insuln.pen 06/15/20 Insulin Lispro [Humalog KwikPen] 5 unit SC DINNER #2 insuln.pen 06/15/20 Insulin Lispro [Humalog KwikPen] 5 unit SC LUNCH #1 insuln.pen 06/15/20 Pen Needle, Diabetic [Pen Needle] 1 ea MC 4X/DAY #120 dis.needle 06/15/20 Following Prescriptions Were Given to Patient: Insulin Lispro [Humalog KwikPen] 5 unit SC LUNCH #1 insuln.pen Insulin Lispro [Humalog KwikPen] 5 unit SC BREAKFAST #1 insuln.pen Insulin Lispro [Humalog KwikPen] 5 unit SC DINNER #2 insuln.pen Transmission Status: Received by ALIDA WEAV[address] Insulin Glargine [Lantus SoloStar Pen] 15 units SC QHS #2 pen Transmission Status: Received by ALIDA WEAVER RD Pen Needle, Diabetic [Pen Needle] 1 ea MC 4X/DAY #120 dis.needle Transmission Status: Received by ALIDA WEAVER RD Other Amb Orders: Glucometer Location: None Selected Primary Care Physician: Azael Ramos MD [Primary Care Provider] - Please follow up with your Primary Care Physician in: 1 week. Patient Instructions: Using a Blood Sugar Log, Hyperglycemia (High Blood Sugar), Hypoglycemia (Low Blood Sugar), What Is Type 2 Diabetes?, How to Check Your Blood Sugar Disposition: Home Minutes spent on discharge:: 33 Patient Condition:: Stable Medical Necessity - Tobacco Use Smoking Status: Former smoker Tobacco Use: Non-smoker Meaningful Use Info Meaningful Use Diagnoses (Choose all that apply): None applicable Inpatient E&M: 84188 Disch Hosp
--- NOTE | 2020-06-16 14:54 | CASEMGMT ---
OPHELIA ORR Discharge Follow-Up Phone Call. Lizz: Nav Strata: 3 Discharge Date: 06/15/20 Adm Dx: DKA Call to pt to inquire about how he has been doing since being discharged from the hospital. Pt states he is doing better. He states he was able to tack picker the insulins yesterday that were prescribed but was not able to get the glucometer until this AM, d/t they did not have it available at the pharmacy. He states his BS was high this morning when he checked it stating it was like 500. He has an appt with his PCP, Dr Ramos today @ 4:20 PM and plans to discuss this with him. He states self administering his insulin was pretty rough at first, but it's getting better. He voices appreciation for education by the nursing staff. He denies having any questions about the discharge instructions or medications. He denies needs, concerns, or questions. Mike TRACY RN, CM
== END 2020-06-15 12:40 | disposition home or self-care (01) | DRG 637 ==
LOC: ED 15:41 → ICU 17:08
PROVIDERS: Admitting Provider Internal Medicine; Emergency Provider Emergency Medicine; PCP Family Medicine; Visit Provider Hospitalist
DX: E09.10 Drug or chemical induced diabetes mellitus with ketoacidosis without coma (principal); G93.41 Metabolic encephalopathy; U07.1 COVID-19; N17.9 Acute kidney failure, unspecified; Q87.81 Alport syndrome; Z94.0 Kidney transplant status; I12.9 Hypertensive chronic kidney disease with stage 1 through stage 4 chronic kidney disease, or unspecified chronic kidney disease; N18.31 Chronic kidney disease, stage 3a; T38.0X5A Adverse effect of glucocorticoids and synthetic analogues, initial encounter; Y92.9 Unspecified place or not applicable; E86.0 Dehydration; E83.52 Hypercalcemia; E78.5 Hyperlipidemia, unspecified; Z99.2 Dependence on renal dialysis; Z79.52 Long term (current) use of systemic steroids; Z87.891 Personal history of nicotine dependence
CPT/HCPCS: 36415; 70450; 71045; 80048; 80053; 81001; 82009; 82803; 82962; 83036; 83605; 84100; 84484; 85025; 93005; 97802; 99251; 99285; J7030; J7040; A4216; G0463; J2405; J7799

== ENCOUNTER 2020-07-16 08:00 | Outpatient (RCR) | payer MEDICARE, OTHER, SELFPAY ==
[2020-06-14 11:05] VITALS: BMI 27.1
== END 2020-07-23 23:59 ==
LOC: DC 08:00
PROVIDERS: PCP Family Medicine; Visit Provider Family Medicine
DX: E11.9 Type 2 diabetes mellitus without complications (principal)
CPT/HCPCS: 97802; G0108

== ENCOUNTER 2020-08-13 08:30 | Outpatient (RCR) | payer MEDICARE, OTHER, SELFPAY ==
[2020-06-14 11:05] VITALS: BMI 27.1
== END 2020-08-22 23:59 ==
LOC: DC 08:30
PROVIDERS: PCP Family Medicine; Visit Provider Family Medicine
DX: E11.9 Type 2 diabetes mellitus without complications (principal)
CPT/HCPCS: 97803; G0108

== ENCOUNTER 2020-09-11 08:30 | Outpatient (RCR) | payer OTHER, SELFPAY ==
[2020-06-14 11:05] VITALS: BMI 27.1
== END 2020-09-11 23:59 | disposition home or self-care (01) ==
LOC: DC 08:30
PROVIDERS: PCP Family Medicine; Visit Provider Family Medicine
DX: E11.9 Type 2 diabetes mellitus without complications (principal)
CPT/HCPCS: 97803; G0108

== ENCOUNTER → 2020-10-08 | Outpatient (CLI) | payer OTHER, SELFPAY ==
[2020-06-14 11:05] VITALS: BMI 27.1
[2020-10-08 12:24] LABS: Protein, Urine (Random) 13.1 mg/dL (<11.9); Protein:Creat Ratio 240 mg/g CRE (0-200)
== END | disposition home or self-care (01) ==
LOC: POLAB3 11:43 → LABSPEC 11:45
PROVIDERS: PCP Family Medicine; Visit Provider Internal Medicine Nephrology
DX: E13.10 Other specified diabetes mellitus with ketoacidosis without coma (principal)
CPT/HCPCS: 82570; 84156

== ENCOUNTER → 2020-12-11 | Outpatient (CLI) | payer OTHER, SELFPAY ==
[2020-12-11 11:07] LABS: Bacteria 0 SEEN /hpf (None Seen); Mucous, Urine 0 SEEN /hpf (<or=2+); Squamous Epithelial Cells - UA 0 SEEN /hpf (0-5); White Blood Cells 0 SEEN /hpf (0-5)
[2020-12-11 11:12] LABS: Color, Urine Yellow (Yellow); Glucose, Dipstick Normal (Normal); Ketone-Dipstick Negative (Negative); Leukocyte Esterase-Dipstick Negative /ul (Negative); Nitrite-Dipstick Negative (Negative); Occult Blood-Urine 250 /ul (Negative); Protein-Dipstick Negative (Negative); Urine Bilirubin Dipstick Negative (Negative); Urine Clarity Sl. Cloudy (Clear); Urine Urobilinogen Normal (Normal); Urine pH 6.5 (5.0 - 8.0)
[2020-12-11 11:19] LABS: Red Blood Cells-Urine 25-50 SEEN /hpf (0-5)
== END | disposition home or self-care (01) ==
LOC: LABSPEC 10:45
PROVIDERS: PCP Family Medicine; Visit Provider Nurse Practitioner Adult Health
DX: R31.29 Other microscopic hematuria (principal)
CPT/HCPCS: 81001

== ENCOUNTER 2022-08-13 16:01 | Emergency (ER) | payer BC, SELFPAY ==
[2022-08-13 16:02] VITALS: BP 138/97; PULSE 70; RESP 16; TEMP 36.6; O2SAT 97; BMI 31.6
--- NOTE | 2022-08-13 16:19 | EX.ED.GUMALE ---
HPI History of Present Illness Chief Complaint: Complaint Informant: patient Narrative Narrative: Presents sudden pink-tinged blood in urine 2 PM. No back or abdominal pain. Takes baby aspirin. No fevers. 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 He is followed by [facility] currently with transplant nurse (Charlotte Shaikh). Locally follows typesetting machine tender Dr. Mar Knight. He is on tacrolimus and mycophenolate. He states microscopically since transplant always have blood however has never seen gross blood. He called the transplant team on-call nurse referred him to the ED for evaluation. Prior similar symptoms: No PFSH PFSH Medical History Alport syndrome Diabetes Prostate CA Home Medications amlodipine 10 mg tablet 10 mg PO DAILY BP 11/04/17 [History Last Taken 06/13/20] melatonin 5 mg capsule 5 mg PO QHS SLEEP 11/04/17 [History Last Taken Unknown] mycophenolate mofetil 250 mg capsule 750 mg PO BID REJECTION 11/04/17 [History Last Taken 06/13/20] omeprazole 20 mg capsule,delayed release 20 mg PO DAILY GERD 11/04/17 [History Last Taken 06/13/20] sulfamethoxazole 400 mg-trimethoprim 80 mg tablet (Bactrim) 1 tab PO DAILY transplant 11/04/17 [History Last Taken 06/13/20] tacrolimus 1 mg capsule, immediate-release 2 mg PO QHS transplant 11/04/17 [History Last Taken 06/12/20] tacrolimus 1 mg capsule, immediate-release 3 mg PO DAILY REJECTION 11/04/17 [History Last Taken 06/13/20] tamsulosin 0.4 mg capsule 0.4 mg PO BID urine 11/04/17 [History Last Taken 06/13/20] Prednisone 5 mg PO DAILY REJECTION 06/13/20 [History Last Taken 06/13/20] carvedilol 12.5 mg tablet 12.5 mg PO BID HEART 06/13/20 [History Last Taken 06/13/20] simvastatin 20 mg tablet 20 mg PO QHS CHOLESTEROL 06/13/20 [History Last Taken 06/12/20] aspirin 81 mg tablet,delayed release 81 mg PO DAILY@0800 preventative 06/14/20 [History Last Taken Unknown] venlafaxine 150 mg capsule,extended release 24 hr 150 mg PO DAILY depression 06/14/20 [History Last Taken Unknown] insulin glargine 100 unit/mL (3 mL) subcutaneous pen 15 units (0.15 mL) subcut QHS ##2 06/15/20 [Rx Last Taken Unknown] insulin lispro 100 unit/mL subcutaneous pen 5 unit (0.05 mL) subcut BREAKFAST ##1 06/15/20 [Rx Last Taken Unknown] insulin lispro 100 unit/mL subcutaneous pen 5 unit (0.05 mL) subcut DINNER ##2 06/15/20 [Rx Last Taken Unknown] insulin lispro 100 unit/mL subcutaneous pen 5 unit (0.05 mL) subcut LUNCH ##1 06/15/20 [Rx Last Taken Unknown] pen needle, diabetic 29 gauge x 1/2 ##120 06/15/20 [Rx Last Taken Unknown] Allergy/AdvReac Type Severity Reaction Status Date / Time acetaminophen [From Percocet] AdvReac Other Verified 08/13/22 16:05 amoxicillin AdvReac Other Verified 08/13/22 16:05 clonazepam [From Klonopin] AdvReac Other Verified 08/13/22 16:05 milk AdvReac Diarrhea Verified 08/13/22 16:05 oxycodone [From Percocet] AdvReac Other Verified 08/13/22 16:05 tomato [Tomato] AdvReac Diarrhea Verified 08/13/22 16:05 Surgical History (Updated 08/13/22 @ 20:[address] Carlos Manuel Solomon DO) Hx of kidney transplant Social History Smoking Status: Former smoker ROS ROS ED Constitutional Constitutional ED: Denies chills, fever(s) or sweats Eyes Eyes: Denies change in vision ENT ENT ED: Denies dysphagia or sore throat Cardiovascular Cardiovascular: Denies chest pain, leg edema, palpitations or racing heartbeat Respiratory/Chest Respiratory/Chest: Denies cough, dyspnea or dyspnea on exertion Gastrointestinal Gastrointestinal: Denies abdominal pain, diarrhea, nausea or vomiting Genitourinary Genitourinary ED: Reports hematuria; Denies dysuria or urinary frequency Musculoskeletal Musculoskeletal: Denies back pain, extremity pain or neck pain Integumentary Denies rash or wounds Neurologic Neurologic: Denies headache(s), paresthesias or weakness EXAM Physical Exam Const Vital Signs: 08/13/22 16:02 08/13/22 19:00 08/13/22 21:00 Temperature 97.8 F Temperature Source Temporal Pulse Rate 70 69 Respiratory Rate 16 16 18 Blood Pressure 138/97 H 156/99 H Blood Pressure Mean 110 118 Pulse Ox 97 99 Oxygen Delivery Method Room Air Room Air 08/13/22 23:00 Temperature Temperature Source Pulse Rate Respiratory Rate 18 Blood Pressure Blood Pressure Mean Pulse Ox Oxygen Delivery Method Positive well nourished and well developed General Appearance ED: well developed and NAD HEENT Reports moist mucous membranes normocephalic and atraumatic Eyes PERRL, EOMs intact bilaterally and conjunctivae normal General Eye ED: Yes normal appearance of both eyes Neck no lymphadenopathy and supple General: Negative for tenderness Chest Wall Chest: Negative for tenderness Resp normal respiratory effort and normal air movement Effort and Inspection: symmetric chest movement; Negative for respiratory distress Cardio regular rate, regular rhythm and no murmurs Peripheral Pulses: pulses 2+ throughout GI normal to inspection, nondistended, normoactive bowel sounds and non-tender Palpation: Negative for guarding or rebound tenderness present Back/Spine no CVA tenderness and no thoracic nor lumbar tenderness Extremity normal to inspection General Extremety ED: Negative for edema or tenderness General Extremity: Negative for edema Neuro oriented x3 and no sensory deficits noted Sensorium / Orientation: awake and alert Skin no rashes or lesions noted and no wounds MDM MDM MDM Narrative Medical decision making narrative: Interventions / MDM: Differential diagnosis: Hematuria, UTI, renal transplant, kidney stone Diagnosis considered but do not suspect: N/A My EKG interpretation: N/A Imaging independently reviewed and interpreted by myself: CT scan abdomen pelvis: 6 mm obstructive stone on transplant kidney. External documents reviewed: N/A Test considered but not ordered:N/A ED course: Patient without pain noting increasing gross hematuria. No dysuria. Transplant history check labs hemoglobin 13.8 white count 8.4 creatinine 1.1 lower than his reported recent baseline of 1.2. Urine did note hematuria no infection. Due to his new symptoms transplant history CT scan ordered for evaluation of structures. Findings notes a 6 mm obstructive stone on the transplanted kidneys. With single kidney obstruction on the transplanted kidney, he is high risk for kidney injury. He is followed by [facility]. He has no pain. We will discuss with [facility] transfer line. 2200: I spoke with [place] transfer line with hospitalist Dr. Dereck Armenta, along with transplant physician Dr. Aftab Romero, due to the obstructing stone, patient excepted to the transplant service. Image studies is pushed up to the facility further evaluation. He will be started on gentle fluids per their request. Will await for bed for transfer. Re-evaluation: stable Disposition discussed with patient/family/significant other: Patient Case discussed with consulting clinician: Transfer hospitalist, Dr. Deerck Armenta, transplant physician Dr. Aftab Romero. Lab Data Attestation: I reviewed the patient's lab results. Labs: Laboratory Results - last 24 hr 08/13/22 08/13/22 08/13/22 16:28 16:28 16:28 WBC 8.4 RBC 4.97 Hgb 13.8 Hct 43.1 MCV 86.7 MCH 27.8 MCHC 32.0 RDW Std Deviation 43.4 RDW Coeff of Willian 13.9 Plt Count 206 MPV 9.5 Immature Gran % (Auto) 0.800 Neut % (Auto) 81.5 H Lymph % (Auto) 10.0 L [place] % (Auto) 6.5 Eos % (Auto) 0.7 Baso % (Auto) 0.5 Absolute Neuts (auto) 6.9 Absolute Lymphs (auto) 0.84 Nucleated RBC % 0 Sodium 138 Potassium 3.7 Chloride 108 H Carbon Dioxide 26.0 Anion Gap 4 L BUN 13 Creatinine 1.11 Estim Creat Clear Calc 66.26 Est GFR (MDRD) Af Amer 88 Est GFR (MDRD) Non-Af 73 BUN/Creatinine Ratio 11.7 Glucose 106 Calcium 9.1 Urine Color Straw Urine Clarity Clear Urine pH 7.0 Ur Specific [place] 1.005 Urine Protein Negative Urine Glucose (UA) Normal Urine Ketones Negative Urine Occult Blood 250 H Urine Nitrite Negative Urine Bilirubin Negative Urine Urobilinogen Normal Ur Leukocyte Esterase Negative Urine RBC 0-5 SEEN Urine WBC 0 SEEN Ur Squamous Epith Cells 0 SEEN Urine Bacteria 0 SEEN Urine Mucus 0 SEEN Radiography Diagnostic Testing: Clinical Impression(s) from Imaging Studies Abdomen/Pelvis CT 08/13/22 17:16 IMPRESSION: Obstructing 6 mm stone in the proximal right ureter associated with moderate right hydroureteronephrosis of the right pelvic transplant kidney. Atrophic bilateral [place] kidneys with severe hydroureteronephrosis of the right. Benign 1.4 cm left adrenal adenoma. No follow-up necessary. Electronically Signed: Ulysses Cain MD at 18:02 EDT , Discharge Plan Triage Chief Complaint: Complaint ED Provider: Carlos Manuel Solomon Dx/Rx/DC Orders Clinical Impression: Urolithiasis, Renal transplant recipient, Hematuria, Hydroureter of transplanted kidney Prescriptions: No Action tacrolimus 1 MG capsule 3 mg PO DAILY tacrolimus 1 MG capsule 2 mg PO QHS sulfamethoxazole-trimethoprim [Bactrim] 1 EACH tablet 1 tab PO DAILY mycophenolate mofetil 250 MG capsule 750 mg PO BID tamsulosin 0.4 MG capsule 0.4 mg PO BID amlodipine 10 MG tablet 10 mg PO DAILY omeprazole 20 MG capsule 20 mg PO DAILY melatonin 5 MG capsule 5 mg PO QHS carvedilol 12.5 MG tablet 12.5 mg PO BID simvastatin 20 MG tablet 20 mg PO QHS Prednisone 5 MG tablet 5 mg PO DAILY venlafaxine 150 MG capsule 150 mg PO DAILY aspirin 81 MG tablet 81 mg PO DAILY@0800 insulin lispro 100 UNIT/ML insulin pen 5 unit SC LUNCH Qty: 1 0RF insulin lispro 100 UNIT/ML insulin pen 5 unit SC BREAKFAST Qty: 1 0RF insulin lispro 100 UNIT/ML insulin pen 5 unit SC DINNER Qty: 2 0RF insulin glargine 100 UNITS/ML insulin pen 15 units SC QHS Qty: 2 0RF (DME) pen needle, diabetic 1 EACH needle 1 ea MC 4X/DAY Qty: 120 0RF Primary Care Provider: Azael Ramos Referrals: Azael Ramos MD [Primary Care Provider] - Disposition Disposition: DC/Tx to Another Type of HCF
[2022-08-13 16:41] LABS: Bacteria 0 SEEN /hpf (None Seen); Mucous, Urine 0 SEEN /hpf (<or=2+); Squamous Epithelial Cells - UA 0 SEEN /hpf (0-5); White Blood Cells 0 SEEN /hpf (0-5)
[2022-08-13 16:49] LABS: Absolute Lymphocyte Count 0.84 X10^3/uL (0.83-4.51); Absolute Neutrophil Count 6.9 X10^3/uL (2.0-7.7); Basophil# 0.04 X10^3/uL; Basophil% 0.5 % (0-1); Eosinophil# 0.06 X10^3/uL; Eosinophils% 0.7 % (0-5); Hematocrit 43.1 % (40-54); Hemoglobin 13.8 g/dL (13.0-16.5); Lymphocyte # 0.84 X10^3/ul (0.83-4.51); Mean Corpuscular Hgb 27.8 pg (27.0-32.0); Mean Corpuscular Volume 86.7 fL (80-94); Mean Platelet Vol. 9.5 fl (6.2-12.0); Monocyte# 0.55 X10^3/uL; Monocyte% 6.5 % (0-10); NRBC Flagged by Analyzer 0 % (0-5); Neutrophil # 6.86 X10^3/uL (2.7-7.7); Neutrophil % 81.5 % (47-70); Platelet Count 206 K/mm3 (150-450); RBC Distribution Width CV 13.9 % (11.6-14.6); RBC Distribution Width SD 43.4 fl (35.1-43.9); Red Blood Count 4.97 M/mm3 (4.6-6.2); White Blood Count 8.4 K/mm3 (4.4-11.0)
[2022-08-13 17:01] LABS: Color, Urine Straw (Yellow); Glucose, Dipstick Normal (Normal); Ketone-Dipstick Negative (Negative); Leukocyte Esterase-Dipstick Negative /ul (Negative); Nitrite-Dipstick Negative (Negative); Occult Blood-Urine 250 /ul (Negative); Protein-Dipstick Negative (Negative); Specific Gravity, Urine 1.005 (1.002-1.030); Urine Bilirubin Dipstick Negative (Negative); Urine Clarity Clear (Clear); Urine Urobilinogen Normal (Normal)
[2022-08-13 17:14] LABS: Anion Gap 4 (5-15); BUN 13 mg/dL (7-18); BUN/Creat Ratio 11.7 RATIO (10-20); Calcium,Total 9.1 mg/dL (8.5-10.1); Chloride 108 mmol/L (98-107); Creatinine, Serum 1.11 mg/dL (0.70-1.30); EST Glomerular Filtration Rate 73 mL/min (>60); Est Glom Filt Rate - Afr Amer 88 mL/min (>60); Estimated Creatinine Clearance 66.26 ml/min; Glucose 106 mg/dL (74-106); Potassium 3.7 mmol/L (3.5-5.1); Sodium Level 138 mmol/L (136-145)
--- NOTE | 2022-08-13 17:16 | CT_ITS ---
INDICATION: hematuria -- renal transplant place RLQ EXAMINATION: CT Abdomen And Pelvis W/O Contrast Injection TECHNIQUE: Helically acquired images were obtained of the abdomen and pelvis without the use of IV contrast. A radiation dose optimization technique was used for this scan. Oral contrast: None. COMPARISON: 11/04/2017 FINDINGS: Evaluation of the solid organs and vascular structures is limited without intravenous contrast. Visualized lung bases: Bibasilar atelectasis. Liver: Scattered hepatic cysts. Gallbladder: Unremarkable Spleen: Unremarkable Pancreas: Unremarkable Adrenal Glands: 1.4 cm adrenal nodule on the left measuring less than 10 Hounsfield units compatible with benign lipid rich adenoma. Kidneys: Atrophic bilateral [place] kidneys. There is severe hydroureteronephrosis of the [place] right kidney. Obstructing 6 mm stone in the proximal right ureter associated with moderate right hydroureteronephrosis of the right pelvic transplant kidney. Vasculature: Moderate aortoiliac atherosclerotic disease. GI Tract: Scattered diverticula throughout the colon without evidence of inflammation. Lymphadenopathy: None Peritoneum: No ascites. Bladder: Unremarkable Reproductive organs: Multiple prostatic beads. Bones/Soft tissues: Mild scattered degenerative changes of the visualized spine. CT/Abdomen/Pelvis without Cont IMPRESSION: Obstructing 6 mm stone in the proximal right ureter associated with moderate right hydroureteronephrosis of the right pelvic transplant kidney. Atrophic bilateral [place] kidneys with severe hydroureteronephrosis of the right. Benign 1.4 cm left adrenal adenoma. No follow-up necessary. Electronically Signed: Ulysses Cain MD at 18:02 EDT ,
[2022-08-13 17:40] LABS: Red Blood Cells-Urine 0-5 SEEN /hpf (0-5)
[2022-08-13 19:00] VITALS: BP 156/99; PULSE 69; RESP 16; O2SAT 99
[2022-08-13 21:00] VITALS: RESP 18
[2022-08-13 23:00] VITALS: RESP 18
--- NOTE | 2022-08-14 00:41 | ED.RN ---
ATTEMPT TO CALL REPORT TO [facility] MAIN,UNABLE,WILL CALL BACK.
[2022-08-14 00:49] VITALS: BP 147/98; PULSE 65; RESP 18; TEMP 36.7; O2SAT 93
[2022-08-14] MEDS: 0.9% Normal Saline 1,000 ML 75 ML IV (00:53)
== END 2022-08-14 01:47 | disposition other institution (70) ==
PROVIDERS: Emergency Provider Emergency Medicine; PCP Family Medicine; Referring Provider Emergency Medicine; Visit Provider Emergency Medicine
DX: N13.2 Hydronephrosis with renal and ureteral calculous obstruction (principal); E11.9 Type 2 diabetes mellitus without complications; N13.4 Hydroureter; R31.9 Hematuria, unspecified; Z87.891 Personal history of nicotine dependence; Z79.82 Long term (current) use of aspirin
CPT/HCPCS: 74176; 80048; 81001; 85025; 87086; 87811; 96360; 99284; J7030; A4216

== ENCOUNTER 2022-08-14 23:40 | Emergency (ER) | payer BC, SELFPAY ==
[2022-08-14 23:41] VITALS: BP 173/102; PULSE 100; RESP 18; TEMP 36.4; O2SAT 95; BMI 31.0
--- NOTE | 2022-08-14 23:56 | EX.ED.GUMALE ---
HPI History of Present Illness Chief Complaint: Complaint Informant: patient and spouse/S.O. Narrative Narrative: Presents to the ED unable to urinate for the past 4 hours. Patient just discharged from [facility] for ureteral stent, this was placed 1:45 PM earlier today. Of note was seen by myself yesterday transferred up to [facility]. Renal transplant patient findings of a 6 mm proximal ureteral stone in the transplanted kidney. He had hematuria. He had no symptoms otherwise. His labs were stable. He was transferred to the transplant service, he was seen by urology there. His procedure done at [facility] with stent placement. Reported that he has been urinating throughout the day therefore his discharge around 8 PM and also last time he urinated. He got home has not urinated feeling suprapubic discomfort, therefore came to the emergency department. No fevers. No chills. History of [place] syndrome leading to his transplant 2017. He is on mycophenolate and tacrolimus. Prior similar symptoms: No PFSH PFS Medical History Al[place] syndrome Diabetes Prostate CA Home Medications amlodipine 10 mg tablet 10 mg PO DAILY BP 11/04/17 [History Last Taken 06/13/20] melatonin 5 mg capsule 5 mg PO QHS SLEEP 11/04/17 [History Last Taken Unknown] mycophenolate mofetil 250 mg capsule 750 mg PO BID REJECTION 11/04/17 [History Last Taken 06/13/20] omeprazole 20 mg capsule,delayed release 20 mg PO DAILY GERD 11/04/17 [History Last Taken 06/13/20] sulfamethoxazole 400 mg-trimethoprim 80 mg tablet (Bactrim) 1 tab PO DAILY transplant 11/04/17 [History Last Taken 06/13/20] tacrolimus 1 mg capsule, immediate-release 2 mg PO QHS transplant 11/04/17 [History Last Taken 06/12/20] tacrolimus 1 mg capsule, immediate-release 3 mg PO DAILY REJECTION 11/04/17 [History Last Taken 06/13/20] tamsulosin 0.4 mg capsule 0.4 mg PO BID urine 11/04/17 [History Last Taken 06/13/20] Prednisone 5 mg PO DAILY REJECTION 06/13/20 [History Last Taken 06/13/20] carvedilol 12.5 mg tablet 12.5 mg PO BID HEART 06/13/20 [History Last Taken 06/13/20] simvastatin 20 mg tablet 20 mg PO QHS CHOLESTEROL 06/13/20 [History Last Taken 06/12/20] aspirin 81 mg tablet,delayed release 81 mg PO DAILY@0800 preventative 06/14/20 [History Last Taken Unknown] venlafaxine 150 mg capsule,extended release 24 hr 150 mg PO DAILY depression 06/14/20 [History Last Taken Unknown] insulin glargine 100 unit/mL (3 mL) subcutaneous pen 15 units (0.15 mL) subcut QHS ##2 06/15/20 [Rx Last Taken Unknown] insulin lispro 100 unit/mL subcutaneous pen 5 unit (0.05 mL) subcut BREAKFAST ##1 06/15/20 [Rx Last Taken Unknown] insulin lispro 100 unit/mL subcutaneous pen 5 unit (0.05 mL) subcut DINNER ##2 06/15/20 [Rx Last Taken Unknown] insulin lispro 100 unit/mL subcutaneous pen 5 unit (0.05 mL) subcut LUNCH ##1 06/15/20 [Rx Last Taken Unknown] pen needle, diabetic 29 gauge x 1/2 ##120 06/15/20 [Rx Last Taken Unknown] Allergy/AdvReac Type Severity Reaction Status Date / Time acetaminophen [From Percocet] AdvReac Other Verified 08/13/22 16:05 amoxicillin AdvReac Other Verified 08/13/22 16:05 clonazepam [From Klonopin] AdvReac Other Verified 08/13/22 16:05 milk AdvReac Diarrhea Verified 08/13/22 16:05 oxycodone [From Percocet] AdvReac Other Verified 08/13/22 16:05 tomato [Tomato] AdvReac Diarrhea Verified 08/13/22 16:05 Surgical History (Updated 08/15/22 @ 02:[address] Carlos Manuel Solomon DO) Hx of kidney transplant Social History Smoking Status: Former smoker ROS ROS ED Constitutional Constitutional ED: Denies chills, fever(s) or sweats Eyes Eyes: Denies change in vision ENT ENT ED: Denies dysphagia or sore throat Cardiovascular Cardiovascular: Denies chest pain, leg edema, palpitations or racing heartbeat Respiratory/Chest Respiratory/Chest: Denies cough, dyspnea or dyspnea on exertion Gastrointestinal Gastrointestinal: Denies abdominal pain, diarrhea, nausea or vomiting Genitourinary Genitourinary ED: Reports other Details: unable to urinate ; Denies dysuria, hematuria or urinary frequency Musculoskeletal Musculoskeletal: Denies back pain, extremity pain or neck pain Integumentary Denies rash or wounds Neurologic Neurologic: Denies headache(s), paresthesias or weakness EXAM Physical Exam Const Vital Signs: 08/14/22 23:41 Temperature 97.5 F L Temperature Source Temporal Pulse Rate 100 Respiratory Rate 18 Blood Pressure 173/102 H Blood Pressure Mean 125 Pulse Ox 95 Oxygen Delivery Method Room Air Positive well nourished and well developed General Appearance ED: well developed and NAD HEENT Reports moist mucous membranes normocephalic and atraumatic Eyes PERRL, EOMs intact bilaterally and conjunctivae normal General Eye ED: Yes normal appearance of both eyes Neck no lymphadenopathy and supple General: Negative for tenderness Chest Wall Chest: Negative for tenderness Resp normal respiratory effort and normal air movement Effort and Inspection: symmetric chest movement; Negative for respiratory distress Cardio regular rate, regular rhythm and no murmurs Peripheral Pulses: pulses 2+ throughout GI normal to inspection, nondistended, normoactive bowel sounds GI Narrative: Supra pubic tenderness Palpation: Negative for guarding or rebound tenderness present Back/Spine no CVA tenderness and no thoracic nor lumbar tenderness Extremity normal to inspection General Extremety ED: Negative for edema or tenderness General Extremity: Negative for edema Neuro oriented x3 and no sensory deficits noted Sensorium / Orientation: awake and alert Skin no rashes or lesions noted and no wounds MDM MDM MDM Narrative Medical decision making narrative: Interventions / MDM: Differential diagnosis: Urine retention, UTI, electrolyte abnormalities, displaced ureteral stent Diagnosis considered but do not suspect: N/A My EKG interpretation: N/A Imaging independently reviewed and interpreted by myself: CT abdomen pelvis ureteral stent in place, no current hydronephrosis also read by radiology. External documents reviewed: N/A Test considered but not ordered:N/A ED course: Patient currently presenting suprapubic tenderness with no urination in last 3 to 4 hours. Carson catheter was placed, 1000 mL urine output with relief of symptoms. Urine culture was sent. Urine results leukocytes and WBCs and RBCs is cold percent. Labs noted white count 10.8 hemoglobin 18 in creatinine 1.55. Both WBCs and creatinine elevated compared to yesterday which was 8 and 1.1 respectively. Patient had a pulse of 100 on arrival 2 out of 4 SIRS criteria added sepsis labs a lactic acid and blood cultures. Lactic acid returned at 1. Patient covered with IV Rocephin. CT scan results no stent migration, no hydronephrosis. Patient renal transplant patient with elevated creatinine and leukocytosis with a complicated UTI. We will rediscussed with [facility] for disposition. 0241: I spoke with transplant physician Dr. Rodriguez, discussed patient's history recent stent placed yesterday and findings on exam. We will maintain the Carson catheter. Patient is status post antibiotics. He is excepted back to [facility] for further management. Re-evaluation: stable, patient and family updated. Disposition discussed with patient/family/significant other: Patient Case discussed with consulting clinician: Transplant director of logistics, Dr. Rodriguez [facility] Lab Data Attestation: I reviewed the patient's lab results. Labs: Laboratory Results - last 24 hr 08/14/22 08/14/22 08/15/22 23:59 23:59 00:14 WBC 14.8 H RBC 5.01 Hgb 14.0 Hct 43.6 MCV 87.0 MCH 27.9 MCHC 32.1 RDW Std Deviation 44.1 H RDW Coeff of Willian 14.0 Plt Count 213 MPV 9.4 Immature Gran % (Auto) 0.600 Neut % (Auto) 92.2 H Lymph % (Auto) 4.2 L [place] % (Auto) 2.8 Eos % (Auto) 0.0 Baso % (Auto) 0.2 Absolute Neuts (auto) 13.6 H Absolute Lymphs (auto) 0.62 L Nucleated RBC % 0 Sodium 134 L Potassium 3.5 Chloride 103 Carbon Dioxide 23.0 Anion Gap 8 BUN 19 H Creatinine 1.55 H Estim Creat Clear Calc 47.45 Est GFR (MDRD) Af Amer 60 Est GFR (MDRD) Non-Af 49 L BUN/Creatinine Ratio 12.3 Glucose 215 H Lactic Acid Calcium 8.7 Urine Color SEE COMMENT BELOW Urine Clarity Sl. Cloudy Urine pH 6.5 Ur Specific [place] 1.010 Urine Protein 100 H Urine Glucose (UA) 50 H Urine Ketones 5 H Urine Occult Blood 250 H Urine Nitrite Negative Urine Bilirubin Negative Urine Urobilinogen Normal Ur Leukocyte Esterase 25 H Urine RBC 25-50 SEEN Urine WBC 5-10 SEEN Ur Squamous Epith Cells 0 SEEN Urine Bacteria RARE Urine Mucus 0 SEEN 08/15/22 00:55 WBC RBC Hgb Hct MCV MCH MCHC RDW Std Deviation RDW Coeff of Willian Plt Count MPV Immature Gran % (Auto) Neut % (Auto) Lymph % (Auto) [place] % (Auto) Eos % (Auto) Baso % (Auto) Absolute Neuts (auto) Absolute Lymphs (auto) Nucleated RBC % Sodium Potassium Chloride Carbon Dioxide Anion Gap BUN Creatinine Estim Creat Clear Calc Est GFR (MDRD) Af Amer Est GFR (MDRD) Non-Af BUN/Creatinine Ratio Glucose Lactic Acid 1.0 Calcium Urine Color Urine Clarity Urine pH Ur Specific [place] Urine Protein Urine Glucose (UA) Urine Ketones Urine Occult Blood Urine Nitrite Urine Bilirubin Urine Urobilinogen Ur Leukocyte Esterase Urine RBC Urine WBC Ur Squamous Epith Cells Urine Bacteria Urine Mucus Radiography Diagnostic Testing: Clinical Impression(s) from Imaging Studies Abdomen/Pelvis CT 08/15/22 00:04 IMPRESSION: No acute abnormality in the abdomen or the pelvis. Electronically Signed: Sophie Seymour MD at 1:15 EDT Reading Location ID and State: [facility] / [place] Tel , Service support , Discharge Plan Triage Chief Complaint: Complaint ED Provider: Carlos Manuel Solomon Dx/Rx/DC Orders Clinical Impression: Acute retention of urine, Renal transplant recipient, Complicated urinary tract infection, Acute renal insufficiency Prescriptions: No Action tacrolimus 1 MG capsule 3 mg PO DAILY tacrolimus 1 MG capsule 2 mg PO QHS sulfamethoxazole-trimethoprim [Bactrim] 1 EACH tablet 1 tab PO DAILY mycophenolate mofetil 250 MG capsule 750 mg PO BID tamsulosin 0.4 MG capsule 0.4 mg PO BID amlodipine 10 MG tablet 10 mg PO DAILY omeprazole 20 MG capsule 20 mg PO DAILY melatonin 5 MG capsule 5 mg PO QHS carvedilol 12.5 MG tablet 12.5 mg PO BID simvastatin 20 MG tablet 20 mg PO QHS Prednisone 5 MG tablet 5 mg PO DAILY venlafaxine 150 MG capsule 150 mg PO DAILY aspirin 81 MG tablet 81 mg PO DAILY@0800 insulin lispro 100 UNIT/ML insulin pen 5 unit SC LUNCH Qty: 1 0RF insulin lispro 100 UNIT/ML insulin pen 5 unit SC BREAKFAST Qty: 1 0RF insulin lispro 100 UNIT/ML insulin pen 5 unit SC DINNER Qty: 2 0RF insulin glargine 100 UNITS/ML insulin pen 15 units SC QHS Qty: 2 0RF (DME) pen needle, diabetic 1 EACH needle 1 ea MC 4X/DAY Qty: 120 0RF Primary Care Provider: Azael Ramos Referrals: Azael Ramos MD [Primary Care Provider] -
[2022-08-15 00:02] LABS: Absolute Lymphocyte Count 0.62 X10^3/uL (0.83-4.51); Absolute Neutrophil Count 13.6 X10^3/uL (2.0-7.7); Basophil# 0.03 X10^3/uL; Basophil% 0.2 % (0-1); Hematocrit 43.6 % (40-54); Lymphocyte # 0.62 X10^3/ul (0.83-4.51); Lymphocyte % 4.2 % (19-41); Mean Corp Hgb Conc 32.1 g/dL (32-36); Mean Corpuscular Hgb 27.9 pg (27.0-32.0); Mean Platelet Vol. 9.4 fl (6.2-12.0); Monocyte# 0.41 X10^3/uL; Monocyte% 2.8 % (0-10); NRBC Flagged by Analyzer 0 % (0-5); Neutrophil # 13.61 X10^3/uL (2.7-7.7); Neutrophil % 92.2 % (47-70); Platelet Count 213 K/mm3 (150-450); RBC Distribution Width SD 44.1 fl (35.1-43.9); Red Blood Count 5.01 M/mm3 (4.6-6.2); White Blood Count 14.8 K/mm3 (4.4-11.0)
[2022-08-15] MEDS: Lidocaine Jelly 2% 20 ML Syringe (URO-JET) 1 APPLIC TOPICAL (00:03)
--- NOTE | 2022-08-15 00:04 | CT_ITS ---
INDICATION: S/P STENT PLACEMENT EXAMINATION: CT ABDOMEN AND PELVIS WITHOUT CONTRAST - CT Abdomen And Pelvis W/O Contrast Injection TECHNIQUE: Helically acquired images were obtained of the abdomen and pelvis without oral or IV contrast. A radiation dose optimization technique was used for this scan. IV Contrast dosage and agent: None. Oral contrast: None. RADIATION DOSAGE (If Supplied By Facility): CTDIvol = ( 11.07 ) mGy, DLP = ( 652.48 ) mGycm COMPARISON: FINDINGS: LOWER CHEST: Lung bases are clear. No cardiomegaly or pericardial effusion. LIVER: Multiple liver cysts the largest measures 3.4 cm. No focal mass. GALLBLADDER AND BILIARY TREE: No calcified gallstones. No gallbladder distension or wall edema. No intra- or extrahepatic biliary ductal dilation. PANCREAS: No focal cystic or solid mass. SPLEEN: Normal size without focal cystic or solid mass. ADRENAL GLANDS: No nodules. KIDNEYS AND URETERS: Severe atrophy of the [place] kidneys was chronic severe hydronephrosis of the right [place] kidney. Nonobstructing stones in the [place] kidneys largest measures 4 mm. Right kidney transplant with a ureteral stent in good position. There is no hydronephrosis in the transplant. PERITONEUM: No ascites or free air. No other fluid collection. BOWEL: Descending colon and sigmoid diverticulosis. No evidence of acute appendicitis. No stomach or bowel distension. No focal inflammatory change. LYMPH NODES: No enlarged mesenteric or retroperitoneal lymph nodes. VESSELS: Aorta is non-dilated. URINARY BLADDER: Unremarkable. REPRODUCTIVE ORGANS: Radiation therapy seeds in the prostate. ABDOMINAL WALL: No discrete abdominal or pelvic wall hernia. BONES: No lytic or blastic abnormality. CT/Abdomen/Pelvis without Cont IMPRESSION: No acute abnormality in the abdomen or the pelvis. Electronically Signed: Sophie Seymour MD at 1:15 EDT ,
[2022-08-15 00:17] LABS: Anion Gap 8 (5-15); BUN 19 mg/dL (7-18); BUN/Creat Ratio 12.3 RATIO (10-20); Calcium,Total 8.7 mg/dL (8.5-10.1); Chloride 103 mmol/L (98-107); Creatinine, Serum 1.55 mg/dL (0.70-1.30); EST Glomerular Filtration Rate 49 mL/min (>60); Est Glom Filt Rate - Afr Amer 60 mL/min (>60); Estimated Creatinine Clearance 47.45 ml/min; Glucose 215 mg/dL (74-106); Potassium 3.5 mmol/L (3.5-5.1); Sodium Level 134 mmol/L (136-145)
[2022-08-15 00:23] LABS: Mucous, Urine 0 SEEN /hpf (<or=2+); Squamous Epithelial Cells - UA 0 SEEN /hpf (0-5)
[2022-08-15 00:27] LABS: Glucose, Dipstick 50 mg/dl (Normal); Ketone-Dipstick 5 mg/dl (Negative); Leukocyte Esterase-Dipstick 25 /ul (Negative); Nitrite-Dipstick Negative (Negative); Occult Blood-Urine 250 /ul (Negative); Protein-Dipstick 100 mg/dl (Negative); Urine Bilirubin Dipstick Negative (Negative); Urine Clarity Sl. Cloudy (Clear); Urine Urobilinogen Normal (Normal); Urine pH 6.5 (5.0 - 8.0)
[2022-08-15 00:30] LABS: Color, Urine SEE COMMENT BELOW (Yellow)
[2022-08-15 00:47] LABS: Bacteria RARE /hpf (None Seen); Red Blood Cells-Urine 25-50 SEEN /hpf (0-5); White Blood Cells 5-10 SEEN /hpf (0-5)
[2022-08-15] MEDS: Ceftriaxone 1 GM/50 ML BAG IV (01:20)
[2022-08-15 03:46] VITALS: BP 153/103; PULSE 78; RESP 18; O2SAT 96
--- NOTE | 2022-08-15 05:05 | NURSING ---
RECEIVED ACCEPTANCE FOR THE TRANSFER TO [facility]- CALLED PHYSICIANS TO SET UP TRANSPORT ETA [id number]
[2022-08-15 06:30] VITALS: BP 147/103; PULSE 78; RESP 14; TEMP 36.8; O2SAT 97
[2022-08-15 08:11] VITALS: BP 145/100; PULSE 71; RESP 14; O2SAT 97
== END 2022-08-15 10:15 | disposition short-term general hospital (02) ==
LOC: ED 08-15 00:34
PROVIDERS: Emergency Provider Emergency Medicine; PCP Family Medicine; Visit Provider Emergency Medicine
DX: N39.0 Urinary tract infection, site not specified (principal); E11.9 Type 2 diabetes mellitus without complications; N20.1 Calculus of ureter; Z87.891 Personal history of nicotine dependence; R33.9 Retention of urine, unspecified; Z94.0 Kidney transplant status
CPT/HCPCS: 51702; 74176; 80048; 81001; 83605; 85025; 87040; 87086; 96365; 96366; 99284; A4216

== ENCOUNTER → 2022-08-23 | Outpatient (CLI) | payer BC, SELFPAY ==
[2022-08-23 17:59] LABS: Absolute Lymphocyte Count 0.48 X10^3/uL (0.83-4.51); Absolute Neutrophil Count 4.7 X10^3/uL (2.0-7.7); Basophil# 0.04 X10^3/uL; Basophil% 0.6 % (0-1); Eosinophil# 0.38 X10^3/uL; Eosinophils% 5.7 % (0-5); Hematocrit 43.3 % (40-54); Lymphocyte # 0.48 X10^3/ul (0.83-4.51); Lymphocyte % 7.3 % (19-41); Mean Corp Hgb Conc 32.3 g/dL (32-36); Mean Corpuscular Hgb 28.5 pg (27.0-32.0); Mean Platelet Vol. 9.6 fl (6.2-12.0); Monocyte# 0.93 X10^3/uL; Monocyte% 14.1 % (0-10); NRBC Flagged by Analyzer 0 % (0-5); Neutrophil # 4.72 X10^3/uL (2.7-7.7); Neutrophil % 71.4 % (47-70); POSITIVE DIFFERENTIAL YES; Platelet Count 232 K/mm3 (150-450); RBC Distribution Width CV 13.9 % (11.6-14.6); RBC Distribution Width SD 44.8 fl (35.1-43.9); Red Blood Count 4.92 M/mm3 (4.6-6.2); White Blood Count 6.6 K/mm3 (4.4-11.0)
[2022-08-23 18:23] LABS: Anion Gap 8 (5-15); BUN 14 mg/dL (7-18); BUN/Creat Ratio 11.9 RATIO (10-20); Calcium,Total 9.1 mg/dL (8.5-10.1); Chloride 107 mmol/L (98-107); Creatinine, Serum 1.18 mg/dL (0.70-1.30); EST Glomerular Filtration Rate 68 mL/min (>60); Est Glom Filt Rate - Afr Amer 82 mL/min (>60); Glucose 144 mg/dL (74-106); Potassium 3.6 mmol/L (3.5-5.1); Sodium Level 138 mmol/L (136-145)
[2022-08-23 18:39] LABS: Differential Indicated SCAN CRITERIA MET
[2022-08-23 18:53] LABS: Anisocytosis RARE; Platelet Estimate ADEQUATE (ADEQ); Red Cell Morphology N CHROM NORMAL (NORM C&C)
== END | disposition home or self-care (01) ==
LOC: MFPLAB 14:48
PROVIDERS: PCP Family Medicine; Visit Provider Family Medicine
DX: R31.9 Hematuria, unspecified (principal)
CPT/HCPCS: 36415; 80048; 85025

== ENCOUNTER → 2023-06-27 | Outpatient (CLI) | payer BC, SELFPAY ==
[2023-06-27 09:50] LABS: (24 HR) Urine Calcium 185.4 mg/24 HR (42.0-353.0); 24HR UR TOTAL VOLUME 2575 ml; 24Hr.Lytes Total Volume 2575 mL; Calcium Urine pH Range 1; Sodium 24 HR UR 111 mmol/24h (40-220); Urine Calcium (Random) 7.2 (Not Estab.); Urine Sodium 43 mmol/L (Not Establ.)
== END | disposition home or self-care (01) ==
PROVIDERS: PCP Family Medicine; Referring Provider Internal Medicine Nephrology; Visit Provider Internal Medicine Nephrology
DX: N18.31 Chronic kidney disease, stage 3a (principal); Z87.442 Personal history of urinary calculi
CPT/HCPCS: 81050; 82340; 84300

== ENCOUNTER → 2023-06-28 | Outpatient (CLI) | payer BC, SELFPAY ==
[2023-07-01 15:08] LABS: Citric Acid, 24Ur 90 mg/24 hr (320-1240); Citric Acid, Ur 44 mg/L (Undefined)
== END | disposition home or self-care (01) ==
LOC: LABSPEC 07:29
PROVIDERS: PCP Family Medicine; Referring Provider Internal Medicine Nephrology; Visit Provider Internal Medicine Nephrology
DX: N18.31 Chronic kidney disease, stage 3a (principal); Z87.442 Personal history of urinary calculi
CPT/HCPCS: 81050; 82507

== ENCOUNTER → 2024-03-15 | Outpatient (CLI) | payer BC, SELFPAY ==
[2024-03-15 10:09] LABS: Bacteria 0 SEEN /hpf (None Seen); Mucous, Urine 0 SEEN /hpf (<or=2+); Squamous Epithelial Cells - UA 0 SEEN /hpf (0-5); White Blood Cells 0 SEEN /hpf (0-5)
[2024-03-15 10:21] LABS: Color, Urine Yellow (Yellow); Glucose, Dipstick Normal (Normal); Ketone-Dipstick Negative (Negative); Leukocyte Esterase-Dipstick Negative /ul (Negative); Nitrite-Dipstick Negative (Negative); Occult Blood-Urine 10 /ul (Negative); Protein-Dipstick Negative (Negative); Specific Gravity, Urine 1.005 (1.002-1.030); Urine Bilirubin Dipstick Negative (Negative); Urine Clarity Clear (Clear); Urine Urobilinogen Normal (Normal)
[2024-03-15 10:23] LABS: Hematocrit 44.8 % (40-54); Mean Corp Hgb Conc 31.3 g/dL (32-36); Mean Corpuscular Hgb 26.8 pg (27.0-32.0); Mean Corpuscular Volume 85.8 fL (80-94); Mean Platelet Vol. 9.4 fl (6.2-12.0); Platelet Count 210 K/mm3 (150-450); RBC Distribution Width CV 14.6 % (11.6-14.6); RBC Distribution Width SD 45.4 fl (35.1-43.9); Red Blood Count 5.22 M/mm3 (4.6-6.2); White Blood Count 8.5 K/mm3 (4.4-11.0)
[2024-03-15 11:06] LABS: ALB/GLOB Ratio 1.2 RATIO (0.9-2.4); AST(SGOT) 9 U/L (15-37); Alanine Aminotransfer ALT/SGPT 19 U/L (16-61); Albumin, Serum 3.8 g/dL (3.2-5.0); Alkaline Phosphatase 85 U/L (45-117); Anion Gap 5 (5-15); BUN 10 mg/dL (7-18); BUN/Creat Ratio 8.9 RATIO (10-20); Calcium,Total 8.7 mg/dL (8.5-10.1); Chloride 108 mmol/L (98-107); Creatinine, Serum 1.12 mg/dL (0.70-1.30); EST Glomerular Filtration Rate 71 mL/min (>60); Est Glom Filt Rate - Afr Amer 86 mL/min (>60); Globulin 3.1 g/dL (2.2-4.2); Glucose 96 mg/dL (74-106); Potassium 3.5 mmol/L (3.5-5.1); Protein, Total 6.9 g/dL (6.4-8.2); Red Blood Cells-Urine 0-5 SEEN /hpf (0-5); Sodium Level 140 mmol/L (136-145)
[2024-03-15 16:24] LABS: PSA,Total- Diagnostic < 0.01 ng/mL (0.0-4.0)
== END | disposition home or self-care (01) ==
PROVIDERS: PCP Family Medicine; Referring Provider Internal Medicine Nephrology; Visit Provider Internal Medicine Nephrology
DX: N18.31 Chronic kidney disease, stage 3a (principal); Z85.46 Personal history of malignant neoplasm of prostate
CPT/HCPCS: 36415; 80053; 81001; 84153; 85027; 87086